=== PATIENT | male | born 1945 | race Caucasian/White ===

== ENCOUNTER 2016-06-22 09:34 | Emergency (ER) | payer MEDICARE, OTHER ==
--- NOTE | 2016-06-22 10:07 | ED ---
Chest Pain HPI - General Chief Complaint: Recheck/Abnormal Lab/Rx Stated Complaint: Diff breathing Time Seen by Provider: 06/22/16 09:38 Source: RN notes reviewed - History of Present Illness Initial Comments: This patient is a 71-year-old man who complains of pain to his anterior chest just the left of his sternum that started after he had a fall. He states that yesterday and id had moved him and not locked his wheelchair, which rolled and he ended up falling forward onto his chest. This was around 1:00. He denies any other injury, including no headache, neck or back pain, abdominal pain or extremity pain. The patient states that he had an appointment at Dr. Chacko's office this morning, and he was sent over here because he was having chest pain and his pulse oximetry readings were low, though he does admit to not being on his usual oxygen settings while he was coming over to the clinic. The patient is denying shortness of breath at the moment. He states he has not had any fever or change in his cough. MD Complaint: chest pain Onset/Timin -: days(s) Onset: other (After a fall) Pain Location: substernal (Left sternal border) Pain Radiation: none Severity: moderate Quality: aching Consistency: constant Improves With: nothing Worsens With: palpation Treatments Prior to Arrival: none - Related Data Home Medications Medication Instructions Recorded Confirmed Acetaminophen Tab [Tylenol] 650 mg PO Q6H PRN 05/16/16 06/23/16 Ascorbic Acid [Vitamin C] 500 mg PO Q48H 05/16/16 06/23/16 Aspirin EC [Ecotrin Low Dose] 81 mg PO DAILY 05/16/16 06/23/16 Atorvastatin Calcium [Lipitor] 40 mg PO HS 05/16/16 06/23/16 Calcium Carbonate [Tums] 500 mg PO DAILY PRN 05/16/16 06/23/16 Cholecalciferol [Vitamin D3] 1,000 unit PO Q48H 05/16/16 06/23/16 Cyanocobalamin [Vitamin B-12] 1,000 mcg PO Q48H 05/16/16 06/23/16 Metoprolol Succinate (ER) [Toprol 25 mg PO DAILY 05/16/16 06/23/16 XL] Sertraline [Zoloft] 50 mg PO DAILY 05/16/16 06/23/16 Benzocaine/Menthol Lozeng [Cepacol 1 lozenge MUCOUS MEM Q1H PRN 06/23/16 lozenge] L. Rhamnosus GG/Inulin [Culturelle 1 tab PO Q48H 06/23/16 06/23/16 Chewable Tablet] Levothyroxine Sodium [Synthroid] 25 mcg PO DAILY 06/23/16 06/23/16 Lisinopril [Zestril] 2.5 mg PO DAILY 06/23/16 06/23/16 Megestrol [Megace] 400 mg PO DAILY 06/23/16 06/23/16 Melatonin 6 mg PO HS PRN 06/23/16 06/23/16 Nystatin 100,000 Unit/ml Susp 500,000 units PO TID 06/23/16 06/23/16 [Mycostatin Oral Susp] Ondansetron [Zofran] 4 mg PO Q8HR PRN 06/23/16 06/23/16 guaiFENesin [Diabetic Tussin Ex] 200 mg PO Q4H PRN 06/23/16 06/23/16 Previous Rx's Medication Instructions Recorded ALPRAZolam [Xanax] 0.25 mg PO TID PRN #30 tablet 06/29/16 Furosemide [Lasix] 40 mg PO Q24HR tab 06/29/16 HYDROcodone/APAP 7.5-325MG [[place] 1 each PO Q6H PRN #60 tab 06/29/16 7.5-325] Levofloxacin [Levaquin] 250 mg PO HS #4 tab 06/29/16 Allergies Allergy/AdvReac Type Severity Reaction Status Date / Time gluten AdvReac HEADACHE Verified 06/23/16 12:29 Review of Systems ROS Statement: Those systems with pertinent positive or pertinent negative responses have been documented in the HPI. ROS Other: All systems not noted in ROS Statement are negative. Constitutional: Denies: fever, chills Respiratory: Denies: cough, dyspnea Cardiovascular: Reports: as per HPI, chest pain. Denies: palpitations, edema, syncope Gastrointestinal: Denies: abdominal pain, nausea, vomiting Musculoskeletal: Denies: back pain Skin: Denies: rash Neurological: Denies: headache, weakness, numbness EKG Findings - EKG Results: EKG: interpreted by GERARDO, sinus rhythm (Rate 71 bpm), normal axis, normal QRS - Blocks, Dunne[place], Hypertrophy, ST Abn: Repolarization changes or abnormalities: nonspecific abnormality, ST segment, and/or T wave Past Medical History Past Medical History: Coronary Artery Disease (CAD), Cancer, CVA/TIA, GERD/ Reflux Additional Past Medical History / Comment(s): uses oxygen at home PRN, "fluid in lung recent admit to [facility]", chronic indwelling catheter, chronic lymphocytic leukemia, CHF for physician discharge summary 01/02/16 History of Any Multi-Drug Resistant Organisms: None Reported Past Surgical History: Heart Catheterization With Stent Additional Past Surgical History / Comment(s): Total of 2 cardiac stents, colonoscopies left shoulder jul 2015, apr 2016 polps removed throat Past Anesthesia/Blood Transfusion Reactions: No Reported Reaction Date of Last Stent Placement:: 2013 Past Psychological History: Anxiety, Depression Additional Psychological History / Comment(s): Pt states he takes xanax for anxiety and that it works well for him. He states he smoked socially for about 3 yrs back in [id number]. He states he has abused alcohol and went into a rehab facility 5 yrs ago and quit drinking. He states lately he has been drinking beer with last time being yesterday after a disagreement with family member. He has attended AA in the past. He is retired [employer]. Smoking Status: Never smoker Past Alcohol Use History: Occasional Additional Past Alcohol Use History / Comment(s): please see psychological history section. Past Drug Use History: None Reported - Past Family History Father Family Medical History: CVA/TIA Additional Family Medical History / Comment(s): Father had several CVA's and eventually from one at the age of 84 yrs. Mother Family Medical History: Cancer Additional Family Medical History / Comment(s): Mother of colon cancer at the age of 78 yrs. General Exam Limitations: no limitations General appearance: alert, in distress Head exam: Present: atraumatic, normocephalic, normal inspection Eye exam: Present: normal appearance. Absent: scleral icterus, conjunctival injection ENT exam: Present: normal exam Neck exam: Present: normal inspection, full ROM. Absent: tenderness Respiratory exam: Present: normal lung sounds bilaterally, chest wall tenderness , other (Reproducible tenderness to chest wall). Absent: respiratory distress, wheezes, rales, rhonchi Cardiovascular Exam: Present: regular rate, normal rhythm. Absent: normal heart sounds GI/Abdominal exam: Present: soft. Absent: distended, tenderness, guarding, rebound Extremities exam: Present: normal inspection, normal capillary refill. Absent: pedal edema, calf tenderness Back exam: Present: normal inspection. Absent: CVA tenderness (R), CVA tenderness (L) Neurological exam: Present: alert Skin exam: Present: warm, dry, intact, normal color. Absent: rash Course Vital Signs 06/22/16 06/22/16 06/22/16 09:57 10:11 11:27 Temperature 99.3 F Pulse Rate 76 71 67 Respiratory 16 16 Rate Blood Pressure 131/63 O2 Sat by Pulse 93 L Oximetry 06/22/16 06/22/16 06/22/16 11:34 11:35 13:08 Temperature 98.9 F Pulse Rate 63 68 74 Respiratory 14 14 Rate Blood Pressure 100/61 105/64 O2 Sat by Pulse 94 L 94 L Oximetry 06/22/16 06/22/16 14:02 14:41 Temperature Pulse Rate 87 77 Respiratory 14 14 Rate Blood Pressure 100/56 106/65 O2 Sat by Pulse 94 L 94 L Oximetry Disposition Clinical Impression: Rib fracture, Weakness, Renal failure (ARF), acute on chronic Disposition: HOME SELF-CARE Condition: Poor Instructions: Rib Fracture (ED), COPD (Chronic Obstructive Pulmonary Disease) ( ED) Referrals: Paulina Biggs DO [Primary Care Provider] - 1-2 days
[2016-06-22 10:15] LABS: Anisocytosis Slight; Aty Lym Flag Marked; CHCM 30.8; HGB 11.4 gm/dL (13.0-17.5); Hypochromasia Moderate; MCHC 30.6 g/dL (31.0-37.0); MCV 84.9 fL (80.0-100.0)
--- NOTE | 2016-06-22 10:24 | XR ---
EXAMINATION TYPE: XR chest 1V portable DATE OF EXAM: 06/22/2016 10:14 AM Comparison: 05/28/2016 Clinical History: 71-year-old male with chest pain Findings: Heart is mildly enlarged. Similar prior. Rightward patient rotation alters the normal cardiac and med iastinal contours. Right lung and pleural space appear clear. Continued retrocardiac and left basilar opacity. Partially visualized fixation hardware proximal left humerus. There are punched-out lytic l esion seen within the proximal right humerus, similar previous. Possible additional subtle lytic lesi ons in the medial right clavicular shaft. Left lateral lower rib fracture deformities probably subacu te. Impression: 1. Probable subacute lower left lateral rib fracture deformities. 2. Continued small left pleural effusion with adjacent atelectasis and/or consolidation. 3. Redemonstrated punched-out lytic lesions proximal right humerus and probably in the medial right c lavicle as well. Correlate for metastatic disease or multiple myeloma.
[2016-06-22 10:26] LABS: HCT 37.3 % (39.0-53.0); HDW 3.06; Mean Platelet Volume 7.8; RDW 18.5 % (11.5-15.5); WBC (Perox) 187.8
[2016-06-22 10:30] LABS: Calcium 8.9 mg/dL (8.4-10.2); Magnesium 2.1 mg/dL (1.6-2.3); Potassium 5.4 mmol/L (3.5-5.1); Total Bilirubin 0.7 mg/dL (0.2-1.3); WBC 189.6 k/uL (3.8-10.6)
[2016-06-22 10:36] LABS: INR 1.1 (<1.1); Partial Thromboplastin Time 24.9 sec (22.0-30.0)
[2016-06-22 10:46] LABS: Creatine Kinase 110 U/L (55-170)
[2016-06-22 10:55] LABS: Add Differential Manual Differential
[2016-06-22 10:56] LABS: Nucleated Red Blood Cells 0 /100 WBC (0-0); Total Cells Counted 200
[2016-06-22 10:58] LABS: Creatine Kinase MB 1.7 ng/mL (0.0-2.4); Troponin I <0.012 ng/mL (0.000-0.034)
[2016-06-22] MEDS ORDERED: ALBUTEROL NEBULIZED 2.5 MG/3 ML INHALATION STA (11:03)
[2016-06-22 11:37] VITALS: RESP 14
[2016-06-22] MEDS ORDERED: SODIUM CHLORIDE 0.9% 500 ML IV STA (11:48)
[2016-06-22] MEDS ORDERED: MORPHINE SULFATE 4 MG/ML SYRINGE IV STA (11:48)
[2016-06-22 13:10] VITALS: TEMP 98.9
[2016-06-22 14:47] VITALS: BP 106/65; PULSE 77
[2016-06-22] MEDS ORDERED: MORPHINE SULFATE 2 MG/ML SYRINGE IVP ONE (14:47)
== END 2016-06-22 15:16 | disposition home or self-care (01) ==
LOC: EC 09:34
DX: S22.32XA Fracture of one rib, left side, initial encounter for closed fracture (principal); V00.811A Fall from moving wheelchair (powered), initial encounter; R53.1 Weakness; N17.9 Acute kidney failure, unspecified; N18.9 Chronic kidney disease, unspecified; F41.9 Anxiety disorder, unspecified; F32.9 Major depressive disorder, single episode, unspecified; I50.9 Heart failure, unspecified; I25.10 Atherosclerotic heart disease of native coronary artery without angina pectoris; K21.9 Gastro-esophageal reflux disease without esophagitis; Z95.5 Presence of coronary angioplasty implant and graft; Z85.6 Personal history of leukemia; Z79.82 Long term (current) use of aspirin; Z79.899 Other long term (current) drug therapy; Z86.73 Personal history of transient ischemic attack (TIA), and cerebral infarction without residual deficits; Z87.891 Personal history of nicotine dependence; Z99.81 Dependence on supplemental oxygen
CPT/HCPCS: 36415; 94640; 93005; 80053; 82550; 82553; 83735; 84484; 85025; 85610; 85730; 71010; 99285; 96374; 96361; J2270

== ENCOUNTER 2016-06-23 10:23 | Inpatient (IN) | payer MEDICARE, OTHER ==
[2016-06-23] MEDS ORDERED: methylPREDNISolone SOD SUCCI 125 MG/2 ML VIAL IV STA (10:44)
[2016-06-23] MEDS ORDERED: IPRATROPIUM 0.5 MG/2.5 ML NEBU INHALATION STA (10:44)
[2016-06-23] MEDS ORDERED: ALBUTEROL NEBULIZED 2.5 MG/3 ML INHALATION STA (10:44)
[2016-06-23] MEDS ORDERED: SODIUM CHLORIDE 0.9% 500 ML IV STA (10:44)
--- NOTE | 2016-06-23 10:55 | ED ---
Pediatric SOB HPI - General Chief Complaint: Shortness of Breath Stated Complaint: ector Time Seen by Provider: 06/23/16 10:36 Source: EMS Mode of arrival: EMS Limitations: no limitations - History of Present Illness Initial Comments: Presented with shortness of breath, he was seen earlier in the ER, today he had a chest pain at his nursing facility and they noticed that he was bit confused according to the EMS he answered yes to everything they felt that he was disoriented which is not like him is mostly quite sharp. He had a chest pain bit short winded and blood pressure was quite low according to the EMS his blood pressure was 74/50 and we noticed a blood pressure when he came to the ER. Review of system is not available clearly when I seen him the ER his blood pressure was low he would answer but it wasn't clear he would send the yes to everything I asked him - Related Data Home Medications Medication Instructions Recorded Confirmed Acetaminophen Tab [Tylenol Tab] 650 mg PO Q6H PRN 05/16/16 06/23/16 Ascorbic Acid [Vitamin C] 500 mg PO Q48H 05/16/16 06/23/16 Aspirin EC [Ecotrin Low Dose] 81 mg PO DAILY 05/16/16 06/23/16 Atorvastatin Calcium [Lipitor] 40 mg PO HS 05/16/16 06/23/16 Calcium Carbonate [Tums] 500 mg PO DAILY PRN 05/16/16 06/23/16 Cholecalciferol [Vitamin D3] 1,000 unit PO Q48H 05/16/16 06/23/16 Cyanocobalamin [Vitamin B-12] 1,000 mcg PO Q48H 05/16/16 06/23/16 HYDROcodone/APAP 7.5-325MG [[place] 1 tab PO Q6H PRN 05/16/16 06/23/16 7.5-325] Metoprolol Succinate (ER) [Toprol 25 mg PO DAILY 05/16/16 06/23/16 Xl] Sertraline [Zoloft] 50 mg PO DAILY 05/16/16 06/23/16 ALPRAZolam [Xanax] 0.25 mg PO TID PRN 06/23/16 06/23/16 Baclofen 10 mg PO BID 06/23/16 06/23/16 Benzocaine/Menthol Lozeng [Cepacol 1 lozenge MUCOUS MEM Q1H PRN 06/23/16 Lozenge] L. Rhamnosus GG/Inulin [Culturelle 1 tab PO Q48H 06/23/16 06/23/16 Chewable Tablet] Levothyroxine Sodium [Synthroid] 25 mcg PO DAILY 06/23/16 06/23/16 Lisinopril [Zestril] 2.5 mg PO DAILY 06/23/16 06/23/16 Megestrol [Megace] 400 mg PO DAILY 06/23/16 06/23/16 Melatonin 6 mg PO HS PRN 06/23/16 06/23/16 Nystatin 100,000 Unit/ml Susp 500,000 units PO TID 06/23/16 06/23/16 [Mycostatin Oral Susp] Ondansetron [Zofran] 4 mg PO Q8HR PRN 06/23/16 06/23/16 Spironolactone [Aldactone] 25 mg PO DAILY 06/23/16 06/23/16 guaiFENesin [Diabetic Tussin Ex] 200 mg PO Q4H PRN 06/23/16 06/23/16 Allergies Allergy/AdvReac Type Severity Reaction Status Date / Time gluten AdvReac HEADACHE Verified 06/23/16 12:29 Review of Systems ROS Statement: Those systems with pertinent positive or pertinent negative responses have been documented in the HPI. ROS Other: All systems not noted in ROS Statement are negative. Past Medical History Past Medical History: Coronary Artery Disease (CAD), Cancer, CVA/TIA, GERD/ Reflux Additional Past Medical History / Comment(s): uses oxygen at home PRN, "fluid in lung recent admit to [facility]", chronic indwelling catheter, chronic lymphocytic leukemia, CHF for physician discharge summary 01/02/16 History of Any Multi-Drug Resistant Organisms: None Reported Past Surgical History: Heart Catheterization With Stent Additional Past Surgical History / Comment(s): Total of 2 cardiac stents, colonoscopies left shoulder jul 2015, apr 2016 polps removed throat Past Anesthesia/Blood Transfusion Reactions: No Reported Reaction Date of Last Stent Placement:: 2013 Past Psychological History: Anxiety, Depression Additional Psychological History / Comment(s): Pt states he takes xanax for anxiety and that it works well for him. He states he smoked socially for about 3 yrs back in [id number]. He states he has abused alcohol and went into a rehab facility 5 yrs ago and quit drinking. He states lately he has been drinking beer with last time being yesterday after a disagreement with family member. He has attended AA in the past. He is retired [employer]. Smoking Status: Never smoker Past Alcohol Use History: Occasional Additional Past Alcohol Use History / Comment(s): please see psychological history section. Past Drug Use History: None Reported - Past Family History Father Family Medical History: CVA/TIA Additional Family Medical History / Comment(s): Father had several CVA's and eventually from one at the age of 84 yrs. Mother Family Medical History: Cancer Additional Family Medical History / Comment(s): Mother of colon cancer at the age of 78 yrs. General Exam - General Exam Comments Initial Comments: General: The patient is barely awake, lethargic Skin: Skin is warm and dry and no rashes or lesions are noted. Eye: External ocular muscles are intact. Ears, nose, mouth and throat: There are moist mucous membranes and no oral lesions. Neck: The neck is supple, there is no tenderness or JVD. Cardiovascular: There is a regular rate and rhythm. No murmur, rub or gallop is appreciated. Respiratory: To auscultation bilateral, noticed crackles at the bases Gastrointestinal: Soft, non-distended, non-tender abdomen without masses or organomegaly noted. There is no rebound or guarding present. Bowel sounds are unremarkable. Back: There is no tenderness to palpation in the midline. There is no obvious deformity. Musculoskeletal: Normal ROM, no tenderness, There is no pedal edema. There is no calf tenderness or swelling. No cords were appreciated. Neurological: CN II-XII intact, Cranial nerves III through XII are intact. There are no obvious motor or sensory deficits. Coordination appears grossly intact. Speech is normal. Psychiatric: Cooperative, appropriate mood & affect, normal judgment. Limitations: no limitations Course Vital Signs 06/23/16 06/23/16 06/23/16 10:26 10:31 10:46 Temperature 98.4 F Pulse Rate 70 70 70 Respiratory 20 20 20 Rate Blood Pressure 74/55 85/53 104/57 O2 Sat by Pulse 97 95 95 Oximetry 06/23/16 06/23/16 06/23/16 11:14 11:17 12:22 Temperature Pulse Rate 68 60 Respiratory 20 20 16 Rate Blood Pressure 95/62 100/56 O2 Sat by Pulse 96 95 Oximetry 06/23/16 13:25 Temperature Pulse Rate 79 Respiratory Rate Blood Pressure O2 Sat by Pulse Oximetry EKG is a sinus rhythm with a premature atrial complexes and a ventricular rate is 78 CA interval is 160 QRS duration is 84 QT/QTc is 364/414, degree of this EKG showed flattening of the T-wave in aVL, no ST elevation or ST depression noticed, seems like there is some artifact this EKG Considering VQ scan may not be able to get done right away will start him on now Lovenox 0.75 mg/kg every 12 DL VQ scan is done and report is available then he could go on heparin high-dose protocol if needed for this was discussed with the Dr. Brock he is aware of the and he agrees with the Medical Decision Making - Lab Data Result diagrams: 06/23/16 10:52 06/23/16 10:52 Lab Results 06/23/16 06/23/16 06/23/16 Range/Units 10:13 10:52 10:52 WBC 140.9 H* (3.8-10.6) k/uL RBC 3.73 L (4.30-5.90) m/uL Hgb 9.8 L D (13.0-17.5) gm/dL Hct 31.9 L (39.0-53.0) % MCV 85.4 (80.0-100.0) fL MCH 26.3 (25.0-35.0) pg MCHC 30.8 L (31.0-37.0) g/dL RDW 18.2 H (11.5-15.5) % Plt Count 183 (150-450) k/uL Neutrophils % (Manual) 2.0 % Lymphocytes % (Manual) 96.0 % Monocytes % (Manual) 1.0 % Eosinophils % (Manual) 1.0 % Neutrophils # (Manual) 2.8 (1.3-7.7) k/uL Lymphocytes # (Manual) 135.3 H (1.0-4.8) k/uL Monocytes # (Manual) 1.4 H (0-1.0) k/uL Eosinophils # (Manual) 1.4 H (0-0.7) k/uL Nucleated RBCs 0 (0-0) /100 WBC Hypochromasia Marked Anisocytosis Slight PT (9.0-12.0) sec INR (<1.1) APTT (22.0-30.0) sec D-Dimer (<0.60) mg/L FEU Sodium (137-145) mmol/L Potassium (3.5-5.1) mmol/L Chloride (98-107) mmol/L Carbon Dioxide (22-30) mmol/L Anion Gap mmol/L BUN (9-20) mg/dL Creatinine (0.66-1.25) mg/dL Est GFR (MDRD) Af Amer (>60 ml/min/1.73 sqM) Est GFR (MDRD) Non-Af (>60 ml/min/1.73 sqM) Glucose (74-99) mg/dL POC Glucose (mg/dL) (75-99) mg/dL POC Glu Lead Portfolio Manager ID Plasma Lactic Acid Fernando 0.5 L (0.7-2.0) mmol/L Calcium (8.4-10.2) mg/dL Total Bilirubin (0.2-1.3) mg/dL AST (17-59) U/L ALT (21-72) U/L Alkaline Phosphatase (38-126) U/L Total Creatine Kinase 112 (55-170) U/L CK-MB (CK-2) 1.6 (0.0-2.4) ng/mL CK-MB (CK-2) Rel Index 1.4 Troponin I 0.016 (0.000-0.034) ng/mL Total Protein (6.3-8.2) g/dL Albumin (3.5-5.0) g/dL 06/23/16 06/23/16 06/23/16 Range/Units 10:52 10:52 12:34 WBC (3.8-10.6) k/uL RBC (4.30-5.90) m/uL Hgb (13.0-17.5) gm/dL Hct (39.0-53.0) % MCV (80.0-100.0) fL MCH (25.0-35.0) pg MCHC (31.0-37.0) g/dL RDW (11.5-15.5) % Plt Count (150-450) k/uL Neutrophils % (Manual) % Lymphocytes % (Manual) % Monocytes % (Manual) % Eosinophils % (Manual) % Neutrophils # (Manual) (1.3-7.7) k/uL Lymphocytes # (Manual) (1.0-4.8) k/uL Monocytes # (Manual) (0-1.0) k/uL Eosinophils # (Manual) (0-0.7) k/uL Nucleated RBCs (0-0) /100 WBC Hypochromasia Anisocytosis PT 11.3 (9.0-12.0) sec INR 1.1 (<1.1) APTT 26.7 (22.0-30.0) sec D-Dimer 1.20 H (<0.60) mg/L FEU Sodium 149 H (137-145) mmol/L Potassium 5.3 H (3.5-5.1) mmol/L Chloride 118 H (98-107) mmol/L Carbon Dioxide 20 L (22-30) mmol/L Anion Gap 11 mmol/L BUN 38 H (9-20) mg/dL Creatinine 1.74 H (0.66-1.25) mg/dL Est GFR (MDRD) Af Amer 47 (>60 ml/min/1.73 sqM) Est GFR (MDRD) Non-Af 39 (>60 ml/min/1.73 sqM) Glucose 126 H (74-99) mg/dL POC Glucose (mg/dL) 108 H (75-99) mg/dL POC Glu Lead Portfolio Manager ID Teri Wally Plasma Lactic Acid Fernando (0.7-2.0) mmol/L Calcium 8.4 (8.4-10.2) mg/dL Total Bilirubin 0.7 (0.2-1.3) mg/dL AST 41 (17-59) U/L ALT 44 (21-72) U/L Alkaline Phosphatase 90 (38-126) U/L Total Creatine Kinase (55-170) U/L CK-MB (CK-2) (0.0-2.4) ng/mL CK-MB (CK-2) Rel Index Troponin I (0.000-0.034) ng/mL Total Protein 5.3 L (6.3-8.2) g/dL Albumin 3.2 L (3.5-5.0) g/dL Critical Care Time Total Critical Care Time: 45 Critical Care Time: The patient came in with a blood pressure of 574/55, ABGs were done right away and a fluid resuscitation was started along within nor appendectomy tract pH is 7.31 and bicarb is on the lower side 7.4 fluid bolus was given and 9 that improved his blood pressure right now blood pressure is 105 systolic he is a lot more awake and a he is feeling better he does have a history of chronic myocytic leukemia white blood cell is 140 today was 19 he lost time we checked it is deep, is elevated he definitely needs eval for his blood clot on his lungs but unfortunately can't do the CT angiogram it has to be a 2) to be done in house since his creatinine is 1.[address] is normal rule out any subdural Disposition Clinical Impression: Hypotension, Pneumonia, Fracture of rib, CHF (congestive heart failure), Lytic bone lesions on xray, Elevated d-dimer Disposition: ADMITTED IP TO THIS [facility] Condition: Fair Referrals: Paulina Biggs DO [Primary Care Provider] - 1-2 days
[2016-06-23] MEDS ORDERED: NOREPINEPHRINE 4 MG in SODIUM CHLORIDE 0.9% 250 ML IV SCH ×2 (11:00→16:45)
[2016-06-23 11:16] LABS: Anisocytosis Slight; Aty Lym Flag Marked; CH 25.7; CHCM 30.2; HCT 31.9 % (39.0-53.0); HDW 3.01; Hypochromasia Marked; MCH 26.3 pg (25.0-35.0); MCHC 30.8 g/dL (31.0-37.0); MCV 85.4 fL (80.0-100.0); Mean Platelet Volume 6.5; RBC 3.73 m/uL (4.30-5.90); RDW 18.2 % (11.5-15.5); WBC (Perox) 143.2
[2016-06-23 11:22] LABS: HGB 9.8 gm/dL (13.0-17.5)
[2016-06-23 11:24] LABS: WBC 140.9 k/uL (3.8-10.6)
[2016-06-23 11:28] LABS: INR 1.1 (<1.1); Partial Thromboplastin Time 26.7 sec (22.0-30.0); Prothrombin Time 11.3 sec (9.0-12.0)
[2016-06-23 11:30] LABS: Calcium 8.4 mg/dL (8.4-10.2); Potassium 5.3 mmol/L (3.5-5.1); Total Bilirubin 0.7 mg/dL (0.2-1.3); Total Protein 5.3 g/dL (6.3-8.2)
[2016-06-23 11:40] LABS: Add Differential Manual Differential
[2016-06-23 11:41] LABS: Nucleated Red Blood Cells 0 /100 WBC (0-0); Total Cells Counted 100
[2016-06-23 11:59] LABS: Creatine Kinase MB 1.6 ng/mL (0.0-2.4); Troponin I 0.016 ng/mL (0.000-0.034)
--- NOTE | 2016-06-23 11:59 | CT ---
EXAMINATION TYPE: CT brain wo con DATE OF EXAM: 06/23/2016 11:51 AM COMPARISON: 05/16/2016 HISTORY: 71-year-old male with confusion TECHNIQUE: Examination was done in axial plane without intravenous contrast. Coronal and sagittal reconstructio ns performed. CT DLP: 1162.5 mGycm Automated exposure control for dose reduction was used. FINDINGS: There is no evidence of acute intracranial hemorrhage, acute ischemic changes, mass, mass-effect, or extra-axial fluid collection. There is no effacement of cerebral sulci or basal subarachnoid cister ns. There is no midline shift. Brown-white matter distinction is preserved. Stable moderate diffuse ventriculomegaly and mild to moderate patchy white matter hypodensities. Stable hypodensity in the lateral left cerebellar hemisphere could reflect prior vascular insult. Paranasal sinuses and mastoid air cells well pneumatized. Prominent artifact over the globes. IMPRESSION: 1. No acute intracranial abnormality seen. 2. Stable panventriculomegaly. Correlate for any symptoms of NPH. 3. Mild changes of chronic small vessel ischemic disease and stable encephalomalacia lateral left cer ebellar hemisphere suggesting prior infarct.
[2016-06-23] MEDS ORDERED: VITAMIN A 10,000 UNIT CAPSULE PO SCH (12:15)
[2016-06-23] MEDS ORDERED: NON-FORMULARY DRUG (Calcium/Magnesium/Zinc [Calcium-Magnesium-Zinc Tablet] 1 TAB) PO SCH (12:15)
[2016-06-23] MEDS ORDERED: cefTRIAXone 2,000 MG in SODIUM CHLORIDE 0.9% 100 ML IVPB STA ×2 (12:15→13:09)
--- NOTE | 2016-06-23 12:30 | XR ---
EXAMINATION TYPE: XR chest 2V DATE OF EXAM: 06/23/2016 12:04 PM COMPARISON: 06/22/[address] 04/23/2016. HISTORY: 71-year-old male with difficulty breathing TECHNIQUE: Frontal and lateral views FINDINGS: Limited portable exam due to combination of excessive kyphotic positioning and chin over the upper th orax. Heart appears upper limits of normal in size. There is patchy posterior basilar opacity seen on the lateral view. Diffuse interstitial prominence otherwise appears unchanged from prior. Punched-ou t lytic lucencies proximal right humerus are again noted with probable subacute to chronic fracture d eformities lower left lateral ribs. Vertebral compression collapse of a couple mid thoracic vertebr al bodies unchanged from CT of 04/23/2016. IMPRESSION: 1. Limited exam due to patient positioning. There is interstitial prominence. Correlate to exclude pu lmonary vascular congestion. 2. Patchy posterior basilar opacity on the lateral view could represent atelectasis or infiltrate. 3. A couple vertebral compression collapses mid thoracic spine appear to have been present on 016. Lateral lower left rib fractures are likely subacute to chronic. 4. Redemonstrated punched-out lytic lucencies proximal right humerus.
[2016-06-23 12:39] LABS: Glucose,Whole Blood 108 mg/dL (75-99)
[2016-06-23] MEDS ORDERED: AZITHROMYCIN 500 MG in SODIUM CHLORIDE 0.9% 250 ML IVPB STA (13:10)
[2016-06-23] MEDS ORDERED: MORPHINE SULFATE 4 MG/ML SYRINGE IV PRN (13:38)
[2016-06-23] MEDS ORDERED: NALOXONE 0.4 MG/ML 1 ML VIAL IV PRN (13:38)
[2016-06-23 13:50] LABS: ABG Base Excess -7.7 mmol/L; ABG HCO3 17 mmol/L (21-25); ABG PCO2 36 mmHg (35-45); ABG PH 7.31 (7.35-7.45); ABG PO2 139 mmHg (83-108); ABG TCO2 19 mmol/L (19-24)
[2016-06-23] MEDS ORDERED: FUROSEMIDE 10 MG/ML 2 ML VIAL IV STA (15:13)
--- NOTE | 2016-06-23 15:13 | NM ---
EXAMINATION TYPE: NM pul vent and perfuse DATE OF EXAM: 06/23/2016 2:55 PM COMPARISON: Correlation radiograph same date HISTORY: 71 year-old male shortness of breath, rule out PE TECHNIQUE: Utilizing inhalation of 71.2 mCi Tc 99m DTPA aerosol and intravenous injection of 5.4 mCi of Tc 99m MAA, ventilation and perfusion images are acquired post injection in multiple projections. FINDINGS: There is a moderate-sized matched defect along the posterior left lung probably with corresponding op acity on chest x-ray making for a triple matched defect. Otherwise, there is mild heterogeneity of pe rfusion throughout the lungs. IMPRESSION: Intermediate probability for pulmonary embolism based on modified PIOPED 2 criteria.
--- NOTE | 2016-06-23 15:23 | XR ---
EXAMINATION TYPE: XR chest 1V portable DATE OF EXAM: 06/23/2016 3:16 PM Comparison: Earlier today Clinical History: 71 year-old male shortness of breath Findings: Again, limited exam due to kyphotic positioning and chin over the upper thorax. Heart remains upper l imits of normal in size. Some patchy retrocardiac opacity is seen. Diffuse interstitial prominence. P unched-out lytic lucencies proximal right humerus and probable subacute to chronic left lower lateral rib fracture deformities. Impression: Similar patchy retrocardiac atelectasis or infiltrate. Interstitial prominence likely chronic. Correl ate to exclude mild pulmonary vascular congestion.
[2016-06-23] MEDS ORDERED: FUROSEMIDE 40 MG TAB PO SCH (16:00)
[2016-06-23 16:07] LABS: VBG PH 7.26 (7.31-7.41)
[2016-06-23] MEDS ORDERED: NOREPINEPHRINE 16 MG in SODIUM CHLORIDE 0.9% 250 ML IV SCH (16:45)
[2016-06-23] MEDS: LEVOFLOXACIN 500MG-D5W PMX 500 MG in DEXTROSE/WATER 1 100ML.BAG IVPB SCH (18:08)
[2016-06-23 18:31] LABS: Glucose,Whole Blood 268 mg/dL (75-99)
[2016-06-23] MEDS ORDERED: ENOXAPARIN 60 MG/0.6 ML SYRINGE SQ SCH (21:00)
[2016-06-23 21:06] LABS: Appearance,Urine Clear (Clear); Bilirubin,Urine Negative (Negative); Glucose,Urine (UA) Negative (Negative); Ketones,Urine Negative (Negative); Leukocyte Esterase,Urine Large (Negative); Mucus,Urine Rare /hpf; Nitrite,Urine Negative (Negative); Particle Count 2072; Protein,Urine Trace (Negative); Specific Gravity,Urine 1.008 (1.001-1.035); Squamous Epithelial Cell,Urine <1 /hpf (0-4); UA Billing (MACRO vs. MICRO) MICRO; Urobilinogen,Urine <2.0 mg/dL (<2.0); WBC,Urine 17 /hpf (0-5)
[2016-06-23] MEDS: ATORVASTATIN 40 MG TAB PO SCH (22:23)
[2016-06-23] MEDS: FUROSEMIDE 40 MG TAB PO SCH (22:23)
[2016-06-23] MEDS: ENOXAPARIN 60 MG/0.6 ML SYRINGE SQ SCH (22:23)
[2016-06-23] MEDS: PIPERACILLIN-TAZOBACTAM 3.375 GM in DEXTROSE/WATER 1 50ML.BAG IVPB SCH (23:41)
[2016-06-24] MEDS: ACETAMINOPHEN TAB 325 MG TAB PO PRN ×2 (03:07→08:16)
[2016-06-24 05:03] LABS: Anisocytosis Slight; Aty Lym Flag Marked; CH 25.7; CHCM 29.3; HCT 32.5 % (39.0-53.0); HDW 2.92; HGB 9.8 gm/dL (13.0-17.5); Hypochromasia Marked; MCH 26.6 pg (25.0-35.0); MCHC 30.1 g/dL (31.0-37.0); MCV 88.2 fL (80.0-100.0); Mean Platelet Volume 7.6; RBC 3.69 m/uL (4.30-5.90); RDW 18.4 % (11.5-15.5); WBC (Perox) 163.1
[2016-06-24 05:17] LABS: Calcium 8.6 mg/dL (8.4-10.2); Magnesium 2.4 mg/dL (1.6-2.3); Phosphorous 5.3 mg/dL (2.5-4.5); Potassium 5.6 mmol/L (3.5-5.1)
[2016-06-24 05:31] LABS: WBC 164.2 k/uL (3.8-10.6)
[2016-06-24 06:45] LABS: Add Differential Manual Differential
[2016-06-24 06:47] LABS: Nucleated Red Blood Cells 0 /100 WBC (0-0); Total Cells Counted 200
[2016-06-24 06:49] LABS: Target Cells Present
[2016-06-24 06:50] LABS: Manual Review Performed
--- NOTE | 2016-06-24 07:34 | XR ---
EXAMINATION TYPE: XR chest 1V portable DATE OF EXAM: 06/24/2016 6:28 AM Comparison: 06/23/2016 Clinical History: 71 year-old male shortness of breath Findings: Heart remains upper limits of normal in size. Aorta and pulmonary vasculature within normal limits. P ersisting patchy left basilar opacity. Lower posterolateral and lateral chronic left rib fracture def ormities are again noted. Intramedullary nailing proximal left humerus. Redemonstrated punched-out ly tic lucencies in the proximal right humerus. Impression: Continued patchy left basilar atelectasis or infiltrate. Possible trace effusion.
[2016-06-24 07:40] LABS: Glucose,Whole Blood 140 mg/dL (75-99)
[2016-06-24] MEDS: ASPIRIN 81 MG CHEW PO SCH (08:16)
[2016-06-24] MEDS: FUROSEMIDE 40 MG TAB PO SCH (08:16)
[2016-06-24] MEDS: ENOXAPARIN 60 MG/0.6 ML SYRINGE SQ SCH (08:16)
[2016-06-24] MEDS: SERTRALINE 50 MG TAB PO SCH (08:16)
[2016-06-24] MEDS: PIPERACILLIN-TAZOBACTAM 3.375 GM in DEXTROSE/WATER 1 50ML.BAG IVPB SCH ×2 (09:16→16:27)
[2016-06-24] MEDS ORDERED: FUROSEMIDE 40 MG TAB PO SCH (11:00)
[2016-06-24] MEDS: LISINOPRIL 5 MG TAB PO SCH (11:11)
[2016-06-24] MEDS: METOPROLOL SUCCINATE (ER) 25 MG TAB.ER.24H PO SCH (11:11)
[2016-06-24] MEDS: CYANOCOBALAMIN 500 MCG TAB PO SCH (13:00)
[2016-06-24] MEDS: CALCIUM CARBONATE 500 MG CHEWABLE PO SCH (13:00)
[2016-06-24] MEDS: CHOLECALCIFEROL 1,000 UNIT TAB PO SCH (13:00)
--- NOTE | 2016-06-24 14:07 | P.CNPUL ---
History of Present Illness Consult date: 06/24/16 Reason for consult: dyspnea History of present illness: This 69-year-old male patient resides at the [facility]. The patient has multiple medical problems and comorbidities. 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 He did experience some difficulties in swallowing and painful swallow due to radiation therapy. He presented yesterday to be worse department because of difficulty in breathing, change in mental status and the patient was found to be disoriented and did not seem to be at his baseline. In the Department the patient was initially found to have a blood pressure 74/50. He was given a bolus of liter of fluid. This made him more short of breath and it was thought that he was going into pulmonary edema. At that point he was started on IV Lasix. Vasopressors were about to be initiated on this patient however this got placed on hold knowing that the patient's blood pressure improved. He was briefly placed on a BiPAP at a pressure of 10 over 5 cm of water 42 shortness of breath. This morning he is off the BiPAP. His chest x-ray shows kyphoscoliosis and some limited left basilar effusion and some microvascular congestion secondary to CHF. He is known to have heart failure along with coronary artery disease. He has multivessel coronary artery disease and he was not amenable for any any revascularization. His ejection fraction is around 25- 30%. He has also previous history of left-sided pleural effusion that was drained and the fluid characteristics was typical of CLL fluid. He is known to have underlying chronic of ascitic leukemia currently not receiving any treatment. Review of Systems Full review of system was done. Mental status is improved considerably. No focal neurological deficits. No fever or chills. No reported aspiration although this is a concern. Some sore throat related to radiation therapy to his vocal cords. Past Medical History Past Medical History: Coronary Artery Disease (CAD), Cancer, CVA/TIA, GERD/ Reflux, Myocardial Infarction ([place]) Additional Past Medical History / Comment(s): CHF and an EF 23-30%, chronic left sided pleural effusion, CLL, chronic hypoxic respiratory failure uses oxygen at home PRN, meningitits 8-10 years ago , CVA , CAD and insertion of previous coronary stent and he has tripple vessel disease that is not emenable for revascularization, anxiety and depression, GERD, larygeal/vocal cord cancer and he is receiving radiation therapy and 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 Last Myocardial Infarction Date:: 2013 History of Any Multi-Drug Resistant Organisms: None Reported Past Surgical History: Heart Catheterization With Stent Additional Past Surgical History / Comment(s): Cardiac catheterization insertion of coronary stents, colonoscopy, left shoulder surgery, thoracentesis of the left lung, laryngoscopy Past Anesthesia/Blood Transfusion Reactions: No Reported Reaction Date of Last Stent Placement:: 2013 Past Psychological History: Anxiety, Depression Additional Psychological History / Comment(s): Pt states he takes xanax for anxiety and that it works well for him. He states he smoked socially for about 3 yrs back in [id number]. He states he has abused alcohol and went into a rehab facility 5 yrs ago and quit drinking. He states lately he has been drinking beer with last time being yesterday after a disagreement with family member. He has attended AA in the past. He is retired [employer]. Smoking Status: Former smoker Past Alcohol Use History: Occasional Additional Past Alcohol Use History / Comment(s): please see psychological history section. Past Drug Use History: None Reported - Past Family History Father Family Medical History: CVA/TIA Additional Family Medical History / Comment(s): Father had several CVA's and eventually from one at the age of 84 yrs. Mother Family Medical History: Cancer, CVA/TIA Additional Family Medical History / Comment(s): Mother of colon cancer at the age of 78 yrs. Medications and Allergies Home Medications Medication Instructions Recorded Confirmed Type Acetaminophen Tab [Tylenol Tab] 650 mg PO Q6H PRN 05/16/16 06/23/16 History Ascorbic Acid [Vitamin C] 500 mg PO Q48H 05/16/16 06/23/16 History Aspirin EC [Ecotrin Low Dose] 81 mg PO DAILY 05/16/16 06/23/16 History Atorvastatin Calcium [Lipitor] 40 mg PO HS 05/16/16 06/23/16 History Calcium Carbonate [Tums] 500 mg PO DAILY PRN 05/16/16 06/23/16 History Cholecalciferol [Vitamin D3] 1,000 unit PO Q48H 12/07/16 01/14/17 History Cyanocobalamin [Vitamin B-12] 1,000 mcg PO Q48H 05/16/16 06/23/16 History HYDROcodone/APAP 7.5-325MG [[place] 1 tab PO Q6H PRN 05/16/16 06/23/16 History 7.5-325] Metoprolol Succinate (ER) [Toprol 25 mg PO DAILY 05/16/16 06/23/16 History Xl] Sertraline [Zoloft] 50 mg PO DAILY 05/16/16 06/23/16 History ALPRAZolam [Xanax] 0.25 mg PO TID PRN 06/23/16 06/23/16 History Baclofen 10 mg PO BID 06/23/16 06/23/16 History Benzocaine/Menthol Lozeng [Cepacol 1 lozenge MUCOUS MEM Q1H PRN 06/23/16 History Lozenge] L. Rhamnosus GG/Inulin [Culturelle 1 tab PO Q48H 06/23/16 06/23/16 History Chewable Tablet] Levothyroxine Sodium [Synthroid] 25 mcg PO DAILY 06/23/16 06/23/16 History Lisinopril [Zestril] 2.5 mg PO DAILY 06/23/16 06/23/16 History Megestrol [Megace] 400 mg PO DAILY 06/23/16 06/23/16 History Melatonin 6 mg PO HS PRN 06/23/16 06/23/16 History Nystatin 100,000 Unit/ml Susp 500,000 units PO TID 06/23/16 06/23/16 History [Mycostatin Oral Susp] Ondansetron [Zofran] 4 mg PO Q8HR PRN 06/23/16 06/23/16 History Spironolactone [Aldactone] 25 mg PO DAILY 06/23/16 06/23/16 History guaiFENesin [Diabetic Tussin Ex] 200 mg PO Q4H PRN 06/23/16 06/23/16 History Allergies Allergy/AdvReac Type Severity Reaction Status Date / Time gluten AdvReac HEADACHE Verified 06/23/16 12:29 Physical Exam Vitals: Vital Signs Temp Pulse Resp BP Pulse Ox 06/24/16 10:00 88 27 H 108/65 98 06/24/16 09:00 95 23 94/54 96 06/24/16 08:00 98.3 F 87 17 93/61 97 06/24/16 07:00 87 25 H 88/67 96 06/24/16 06:00 88 25 H 100/65 100 06/24/16 05:00 93 27 H 100/67 96 06/24/16 04:00 98 F 85 25 H 99/66 92 L 06/24/16 03:00 89 21 89/59 97 06/24/16 02:00 94 25 H 88/60 100 06/24/16 01:00 98 20 97/66 99 06/24/16 00:00 98.5 F 84 15 92/56 100 06/23/16 23:18 10 L 06/23/16 23:10 92 10 L 91/56 99 06/23/16 23:00 93 32 H 96/70 99 06/23/16 22:50 83 16 102/66 99 06/23/16 22:40 96 52 H 102/66 98 06/23/16 22:30 97 43 H 82/53 98 06/23/16 22:20 85 11 L 81/55 99 06/23/16 22:10 81 10 L 81/55 99 06/23/16 22:00 84 11 L 95/48 99 06/23/16 21:50 94 11 L 99/63 98 06/23/16 21:40 98 26 H 99/63 97 06/23/16 21:30 88 12 98/65 99 06/23/16 21:20 90 11 L 77/54 99 06/23/16 21:10 87 11 L 77/54 99 06/23/16 21:00 88 11 L 95/49 99 06/23/16 20:50 105 H 35 H 79/51 97 06/23/16 20:40 96 27 H 79/51 95 06/23/16 20:30 128 H 25 H 96/63 97 06/23/16 20:20 114 H 11 L 102/63 98 06/23/16 20:10 92 53 H 102/63 98 06/23/16 20:00 102 H 11 L 84/56 98 06/23/16 19:50 98 13 97/57 98 06/23/16 19:40 122 H 35 H 97/57 97 06/23/16 19:30 100 28 H 78/57 98 06/23/16 19:20 117 H 10 L 87/52 99 06/23/16 19:10 112 H 11 L 87/52 98 06/23/16 19:09 99.3 F 97 06/23/16 19:00 99.3 F 127 H 39 H 101/73 98 06/23/16 18:50 119 H 25 H 94/60 97 06/23/16 16:51 92 20 101/59 100 06/23/16 16:27 100.4 F H 98 20 91/55 97 06/23/16 15:00 100 22 95/58 93 L 06/23/16 13:46 69 Intake and Output 06/23/16 06/24/16 06/24/16 22:59 06:59 14:59 Intake Total 160 450 65.0 Output Total 795 945 410 Balance -635 -495 -345.0 Intake: IV 140 40 0.9% NaCl 140 40 Intake, IV Titration 160 70 25.0 Amount Levofloxacin 500Mg-D5w 100 Pmx 500 mg In Dextrose/ Water 1 100ml.bag @ 100 mls/hr IVPB HS [facility] Rx#: [id number] Piperacillin-Tazobactam 3 50 25.0 .375 gm In Dextrose/Water 1 50ml.bag @ 12.5 mls/hr IVPB Q8HR [facility] Rx#: [id number] Sodium Chloride 0.9% 500 60 20 ml @ 999 mls/hr IV .Q31M STA Rx#:[id number] Oral 240 Output: Urine 795 945 410 Other: Voiding Method Indwelling Catheter Indwelling Catheter Indwelling Catheter Weight 58.96 kg 52.8 kg Head exam was generally normal. There was no scleral icterus or corneal arcus. Mucous membranes were moist.Neck was supple and without jugular venous distension, thyromegaly, or carotid bruits. Carotids were easily palpable bilaterally. There was no adenopathy. Lung examination shows thoraco- kyphoscoliosis. Breath sounds are diminished in left lung base. Few crackles are also appreciated lung bases bilaterally.Cardiac exam revealed the PMI to be normally situated and sized. The rhythm was regular and no extrasystoles were noted during several minutes of auscultation. The first and second heart sounds were normal and physiologic splitting of the second heart sound was noted. There were no murmurs, rubs, clicks, or gallops.Abdominal exam revealed normal bowel sounds. The abdomen was soft, non-tender, and without masses, organomegaly , or appreciable enlargement of the abdominal aorta.Examination of the extremities revealed easily palpable radial, femoral and pedal pulses. There was no cyanosis, clubbing or edema. Results - Laboratory Findings CBC and BMP: 06/24/16 04:40 06/24/16 04:40 ABG ABG pH 7.31 (7.35-7.45) L 06/23/16 10:58 ABG pCO2 36 mmHg (35-45) 06/23/16 10:58 ABG pO2 139 mmHg (83-108) H 06/23/16 10:58 ABG O2 Saturation 99.0 % (94-97) H 06/23/16 10:58 PT/INR, D-dimer PT 11.3 sec (9.0-12.0) 06/23/16 10:52 INR 1.1 (<1.1) 06/23/16 10:52 D-Dimer 1.20 mg/L FEU (<0.60) H 06/23/16 10:52 Abnormal lab findings: Abnormal Labs 06/23/16 06/23/16 06/23/16 15:39 18:29 20:50 WBC RBC Hgb Hct MCHC RDW Neutrophils # (Manual) Lymphocytes # (Manual) Monocytes # (Manual) VBG pH 7.26 L VBG HCO3 16 L Sodium Potassium Chloride Carbon Dioxide BUN Creatinine Glucose POC Glucose (mg/dL) 268 H Phosphorus Magnesium Urine Protein Trace H Ur Leukocyte Esterase Large H Urine WBC 17 H Hyaline Casts 5 H Urine Mucus Rare H Urine Yeast (Budding) Occasional H 06/24/16 06/24/16 06/24/16 04:40 04:40 07:38 WBC 164.2 H* RBC 3.69 L Hgb 9.8 L Hct 32.5 L MCHC 30.1 L RDW 18.4 H Neutrophils # (Manual) 8.2 H Lymphocytes # (Manual) 154.3 H Monocytes # (Manual) 1.6 H VBG pH VBG HCO3 Sodium 149 H Potassium 5.6 H Chloride 117 H Carbon Dioxide 17 L BUN 55 H Creatinine 1.80 H Glucose 163 H POC Glucose (mg/dL) 140 H Phosphorus 5.3 H Magnesium 2.4 H Urine Protein Ur Leukocyte Esterase Urine WBC Hyaline Casts Urine Mucus Urine Yeast (Budding) - Diagnostic Findings Chest x-ray: image reviewed Assessment and Plan Plan: Assessment 1 acute shortness of breath, likely secondary to CHF. There is also small left- sided pleural effusion. Pneumonia felt to be less likely. VQ scan is of a intermediate probability of the patient's critical presentation is most consistent with CHF 2 hypotension, recovered 3 hyperchloremic hypernatremia 4 acute on top of chronic renal injury, rule out secondary to cardiorenal factors. 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 18 thoracic kyphoscoliosis Plan Switch Lasix to 40 mg by mouth daily. Continue Zosyn and Levaquin. Repeat chest x-ray with next 24 hours. Switch Lovenox to 40 mg subcu on a daily basis. We'll continue to follow
--- NOTE | 2016-06-24 15:14 | P.HPIM ---
History of Present Illness H&P Date: 06/24/16 Chief Complaint: Worsening shortness of breath Patient is a 69-year-old male with multiple medical problems who currently resides at the [facility] and is followed by Dr. Peck at [facility] for radiation therapy for laryngeal cancer. Patient developed worsening shortness of breath and cough he was brought into [facility] emergency room he had evidence of hypotension was blood pressure of 74/50 he also had evidence of pulmonary edema he was started on IV Lasix IV pressors and was admitted to intensive care unit he was started on BiPAP pulmonary consultation with Dr. Castillo was initiated. Patient has a known history of leukemia, CLL with severe elevation in white blood count he also has a known history of laryngeal cancer currently receiving radiation therapy he has known history of coronary artery disease, congestive heart failure, previous left sided pleural effusion, hypothyroidism, hyperlipidemia, remote history of alcohol abuse. Currently patient is in ICU he is off pressors and off BiPAP he is tolerating well he has improved significantly since admission. Past Medical History Past Medical History: Coronary Artery Disease (CAD), Cancer, CVA/TIA, GERD/ Reflux, Myocardial Infarction ([place]) Additional Past Medical History / Comment(s): CHF and an EF 23-30%, chronic left sided pleural effusion, CLL, chronic hypoxic respiratory failure uses oxygen at home PRN, meningitits 8-10 years ago , CVA , CAD and insertion of previous coronary stent and he has tripple vessel disease that is not emenable for revascularization, anxiety and depression, GERD, larygeal/vocal cord cancer and he is receiving radiation therapy and 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 Last Myocardial Infarction Date:: 2013 History of Any Multi-Drug Resistant Organisms: None Reported Past Surgical History: Heart Catheterization With Stent Additional Past Surgical History / Comment(s): Cardiac catheterization insertion of coronary stents, colonoscopy, left shoulder surgery, thoracentesis of the left lung, laryngoscopy Past Anesthesia/Blood Transfusion Reactions: No Reported Reaction Date of Last Stent Placement:: 2013 Past Psychological History: Anxiety, Depression Additional Psychological History / Comment(s): Pt states he takes xanax for anxiety and that it works well for him. He states he smoked socially for about 3 yrs back in [id number]. He states he has abused alcohol and went into a rehab facility 5 yrs ago and quit drinking. He states lately he has been drinking beer with last time being yesterday after a disagreement with family member. He has attended AA in the past. He is retired [employer]. Smoking Status: Former smoker Past Alcohol Use History: Occasional Additional Past Alcohol Use History / Comment(s): please see psychological history section. Past Drug Use History: None Reported - Past Family History Father Family Medical History: CVA/TIA Additional Family Medical History / Comment(s): Father had several CVA's and eventually from one at the age of 84 yrs. Mother Family Medical History: Cancer, CVA/TIA Additional Family Medical History / Comment(s): Mother of colon cancer at the age of 78 yrs. Medications and Allergies Home Medications Medication Instructions Recorded Confirmed Type Acetaminophen Tab [Tylenol Tab] 650 mg PO Q6H PRN 05/16/16 06/23/16 History Ascorbic Acid [Vitamin C] 500 mg PO Q48H 05/16/16 06/23/16 History Aspirin EC [Ecotrin Low Dose] 81 mg PO DAILY 05/16/16 06/23/16 History Atorvastatin Calcium [Lipitor] 40 mg PO HS 05/16/16 06/23/16 History Calcium Carbonate [Tums] 500 mg PO DAILY PRN 05/16/16 06/23/16 History Cholecalciferol [Vitamin D3] 1,000 unit PO Q48H 05/16/16 06/23/16 History Cyanocobalamin [Vitamin B-12] 1,000 mcg PO Q48H 05/16/16 06/23/16 History HYDROcodone/APAP 7.5-325MG [[place] 1 tab PO Q6H PRN 05/16/16 06/23/16 History 7.5-325] Metoprolol Succinate (ER) [Toprol 25 mg PO DAILY 05/16/16 06/23/16 History Xl] Sertraline [Zoloft] 50 mg PO DAILY 05/16/16 06/23/16 History ALPRAZolam [Xanax] 0.25 mg PO TID PRN 06/23/16 06/23/16 History Baclofen 10 mg PO BID 06/23/16 06/23/16 History Benzocaine/Menthol Lozeng [Cepacol 1 lozenge MUCOUS MEM Q1H PRN 06/23/16 History Lozenge] L. Rhamnosus GG/Inulin [Culturelle 1 tab PO Q48H 06/23/16 06/23/16 History Chewable Tablet] Levothyroxine Sodium [Synthroid] 25 mcg PO DAILY 06/23/16 06/23/16 History Lisinopril [Zestril] 2.5 mg PO DAILY 06/23/16 06/23/16 History Megestrol [Megace] 400 mg PO DAILY 06/23/16 06/23/16 History Melatonin 6 mg PO HS PRN 06/23/16 06/23/16 History Nystatin 100,000 Unit/ml Susp 500,000 units PO TID 06/23/16 06/23/16 History [Mycostatin Oral Susp] Ondansetron [Zofran] 4 mg PO Q8HR PRN 06/23/16 06/23/16 History Spironolactone [Aldactone] 25 mg PO DAILY 06/23/16 06/23/16 History guaiFENesin [Diabetic Tussin Ex] 200 mg PO Q4H PRN 06/23/16 06/23/16 History Allergies Allergy/AdvReac Type Severity Reaction Status Date / Time gluten AdvReac HEADACHE Verified 06/23/16 12:29 Physical Exam Vitals: Vital Signs Temp Pulse Resp BP Pulse Ox 06/24/16 14:00 87 39 H 88/56 97 06/24/16 13:00 91 23 95/66 96 06/24/16 12:00 97.6 F 84 36 H 107/69 98 06/24/16 11:00 88 24 90/64 96 06/24/16 10:00 88 27 H 108/65 98 06/24/16 09:00 95 23 94/54 96 06/24/16 08:00 98.3 F 87 17 93/61 97 06/24/16 07:00 87 25 H 88/67 96 06/24/16 06:00 88 25 H 100/65 100 06/24/16 05:00 93 27 H 100/67 96 06/24/16 04:00 98 F 85 25 H 99/66 92 L 06/24/16 03:00 89 21 89/59 97 06/24/16 02:00 94 25 H 88/60 100 06/24/16 01:00 98 20 97/66 99 06/24/16 00:00 98.5 F 84 15 92/56 100 06/23/16 23:18 10 L 06/23/16 23:10 92 10 L 91/56 99 06/23/16 23:00 93 32 H 96/70 99 06/23/16 22:50 83 16 102/66 99 06/23/16 22:40 96 52 H 102/66 98 06/23/16 22:30 97 43 H 82/53 98 06/23/16 22:20 85 11 L 81/55 99 06/23/16 22:10 81 10 L 81/55 99 06/23/16 22:00 84 11 L 95/48 99 06/23/16 21:50 94 11 L 99/63 98 06/23/16 21:40 98 26 H 99/63 97 06/23/16 21:30 88 12 98/65 99 06/23/16 21:20 90 11 L 77/54 99 06/23/16 21:10 87 11 L 77/54 99 06/23/16 21:00 88 11 L 95/49 99 06/23/16 20:50 105 H 35 H 79/51 97 06/23/16 20:40 96 27 H 79/51 95 06/23/16 20:30 128 H 25 H 96/63 97 06/23/16 20:20 114 H 11 L 102/63 98 06/23/16 20:10 92 53 H 102/63 98 06/23/16 20:00 102 H 11 L 84/56 98 06/23/16 19:50 98 13 97/57 98 06/23/16 19:40 122 H 35 H 97/57 97 06/23/16 19:30 100 28 H 78/57 98 06/23/16 19:20 117 H 10 L 87/52 99 06/23/16 19:10 112 H 11 L 87/52 98 06/23/16 19:09 99.3 F 97 06/23/16 19:00 99.3 F 127 H 39 H 101/73 98 06/23/16 18:50 119 H 25 H 94/60 97 06/23/16 16:51 92 20 101/59 100 06/23/16 16:27 100.4 F H 98 20 91/55 97 Intake and Output 06/24/16 06/24/16 06/24/16 06:59 14:59 22:59 Intake Total 450 130.0 Output Total 945 935 Balance -495 -805.0 Intake: IV 140 80 0.9% NaCl 140 80 Intake, IV Titration 70 50.0 Amount Piperacillin-Tazobactam 3 50 50.0 .375 gm In Dextrose/Water 1 50ml.bag @ 12.5 mls/hr IVPB Q8HR [facility] Rx#: [id number] Sodium Chloride 0.9% 500 20 ml @ 999 mls/hr IV .Q31M STA Rx#:[id number] Oral 240 Output: Urine 945 935 Other: Voiding Method Indwelling Catheter Indwelling Catheter Weight 52.8 kg In general patient is alert slightly confused in no apparent distress HEENT head normocephalic and atraumatic Neck is supple no JVD no goiter no lymphadenopathy no carotid bruit Chest exam reveals a few scattered crackles bilaterally no wheezing Cardiac exam reveals regular heart sounds no gallops no murmurs Abdomen is soft nontender no organomegaly Extremity exam reveals no edema no cyanosis or clubbing Neurological examination reveals no gross focal deficit Results CBC & Chem 7: 06/24/16 04:40 06/24/16 04:40 Labs: Abnormal Lab Results - Last 24 Hours (Table) 06/23/16 06/23/16 06/23/16 Range/Units 15:39 18:29 20:50 WBC (3.8-10.6) k/uL RBC (4.30-5.90) m/uL Hgb (13.0-17.5) gm/dL Hct (39.0-53.0) % MCHC (31.0-37.0) g/dL RDW (11.5-15.5) % Neutrophils # (Manual) (1.3-7.7) k/uL Lymphocytes # (Manual) (1.0-4.8) k/uL Monocytes # (Manual) (0-1.0) k/uL VBG pH 7.26 L (7.31-7.41) VBG HCO3 16 L (24-28) mmol/L Sodium (137-145) mmol/L Potassium (3.5-5.1) mmol/L Chloride (98-107) mmol/L Carbon Dioxide (22-30) mmol/L BUN (9-20) mg/dL Creatinine (0.66-1.25) mg/dL Glucose (74-99) mg/dL POC Glucose (mg/dL) 268 H (75-99) mg/dL Phosphorus (2.5-4.5) mg/dL Magnesium (1.6-2.3) mg/dL Urine Protein Trace H (Negative) Ur Leukocyte Esterase Large H (Negative) Urine WBC 17 H (0-5) /hpf Hyaline Casts 5 H (0-2) /lpf Urine Mucus Rare H (None) /hpf Urine Yeast (Budding) Occasional H (None) /hpf 06/24/16 06/24/16 06/24/16 Range/Units 04:40 04:40 07:38 WBC 164.2 H* (3.8-10.6) k/uL RBC 3.69 L (4.30-5.90) m/uL Hgb 9.8 L (13.0-17.5) gm/dL Hct 32.5 L (39.0-53.0) % MCHC 30.1 L (31.0-37.0) g/dL RDW 18.4 H (11.5-15.5) % Neutrophils # (Manual) 8.2 H (1.3-7.7) k/uL Lymphocytes # (Manual) 154.3 H (1.0-4.8) k/uL Monocytes # (Manual) 1.6 H (0-1.0) k/uL VBG pH (7.31-7.41) VBG HCO3 (24-28) mmol/L Sodium 149 H (137-145) mmol/L Potassium 5.6 H (3.5-5.1) mmol/L Chloride 117 H (98-107) mmol/L Carbon Dioxide 17 L (22-30) mmol/L BUN 55 H (9-20) mg/dL Creatinine 1.80 H (0.66-1.25) mg/dL Glucose 163 H (74-99) mg/dL POC Glucose (mg/dL) 140 H (75-99) mg/dL Phosphorus 5.3 H (2.5-4.5) mg/dL Magnesium 2.4 H (1.6-2.3) mg/dL Urine Protein (Negative) Ur Leukocyte Esterase (Negative) Urine WBC (0-5) /hpf Hyaline Casts (0-2) /lpf Urine Mucus (None) /hpf Urine Yeast (Budding) (None) /hpf Microbiology - Last 24 Hours (Table) 06/23/16 20:50 Urine Culture - Preliminary Urine,Catheterized Thrombosis Risk Factor Assmnt - Choose All That Apply Any of the Below Risk Factors Present?: Yes Each Factor Represents 1 point: Medical pt on bed rest Other Risk Factors: Yes Each Risk Factor Represents 2 Points: Age 61-74 years Other congenital or acquired thrombophilia - If yes, enter type in comment: No Thrombosis Risk Factor Assessment Total Risk Factor Score: 3 Thrombosis Risk Factor Assessment Level: Moderate Risk Assessment and Plan Plan: #1 worsening shortness of breath with evidence of congestive heart failure exacerbation and left sided pleural effusion #2 elevated d-dimer patient underwent VQ scan and was of intermediate probability of pulmonary embolism #3 hypertension on presentation requiring vasopressor use in ICU currently improved #4 chronic hypoxic respiratory failure requiring home oxygen use #5 underlying history of congestive heart failure #6 history of chronic lymphocytic leukemia #7 acute on chronic renal failure #8 congestive heart failure with cardiomyopathy with decreased ejection fraction to 20-30% #9 laryngeal cancer receiving radiation therapy #10 failed swallow evaluation on previous admission currently receiving thickened fluid #11 gastroesophageal reflux disease #12 previous history of alcohol use At this time medications and labs were reviewed patient has improved significantly he would be transferred out of intensive care unit Case was discussed in detail was Dr. Castillo Will follow closely Prognosis is guarded due to advanced multiple morbidities
[2016-06-24] MEDS: HYDROcodone/APAP 7.5-325MG 1 EACH TAB PO PRN ×2 (16:27→22:32)
[2016-06-24 16:59] LABS: Glucose,Whole Blood 108 mg/dL (75-99)
[2016-06-24] MEDS: ASCORBIC ACID 500 MG TAB PO SCH (17:51)
[2016-06-24] MEDS: LEVOFLOXACIN 500MG-D5W PMX 500 MG in DEXTROSE/WATER 1 100ML.BAG IVPB SCH (20:43)
[2016-06-24] MEDS: ATORVASTATIN 40 MG TAB PO SCH (20:43)
[2016-06-25] MEDS: PIPERACILLIN-TAZOBACTAM 3.375 GM in DEXTROSE/WATER 1 50ML.BAG IVPB SCH ×4 (00:24→23:16)
[2016-06-25 07:37] LABS: Anisocytosis Slight; Aty Lym Flag Marked; CH 25.9; CHCM 30.6; HCT 31.2 % (39.0-53.0); HDW 2.93; HGB 9.8 gm/dL (13.0-17.5); Hypochromasia Moderate; MCH 26.7 pg (25.0-35.0); MCHC 31.4 g/dL (31.0-37.0); MCV 85.3 fL (80.0-100.0); Mean Platelet Volume 7.5; RBC 3.67 m/uL (4.30-5.90); RDW 18.4 % (11.5-15.5); WBC (Perox) 141.7
[2016-06-25 07:38] LABS: Calcium 8.8 mg/dL (8.4-10.2); Phosphorous 3.5 mg/dL (2.5-4.5); Potassium 4.8 mmol/L (3.5-5.1)
[2016-06-25 08:02] LABS: WBC 146.2 k/uL (3.8-10.6)
[2016-06-25] MEDS: METOPROLOL SUCCINATE (ER) 25 MG TAB.ER.24H PO SCH (08:12)
[2016-06-25] MEDS: ASPIRIN 81 MG CHEW PO SCH (08:12)
[2016-06-25] MEDS: SERTRALINE 50 MG TAB PO SCH (08:12)
[2016-06-25] MEDS: LISINOPRIL 5 MG TAB PO SCH (08:12)
[2016-06-25] MEDS: ENOXAPARIN 40 MG/0.4 ML SYRINGE SQ SCH (08:13)
[2016-06-25] MEDS: FUROSEMIDE 40 MG TAB PO SCH (08:13)
[2016-06-25 08:49] LABS: Add Differential Manual Differential
[2016-06-25 08:51] LABS: Manual Review Performed; Nucleated Red Blood Cells 0 /100 WBC (0-0); Total Cells Counted 100
--- NOTE | 2016-06-25 10:27 | XR ---
EXAMINATION TYPE: XR chest 1V portable DATE OF EXAM: 06/25/2016 10:06 AM CLINICAL HISTORY: Difficulty breathing progress study. TECHNIQUE: Single AP portable upright view of the chest is obtained. COMPARISON: Chest x-ray from one day earlier FINDINGS: There is persistent left basilar atelectasis and/or infiltrate with small left pleural eff usion. Right lung remains predominantly clear. Chin obscures right lung apex on current study. Cardia c silhouette size is stable and enlarged with ectatic aorta. There is internally fixed healing or hea led fracture left proximal humerus. Lucent lesions within right proximal humerus are redemonstrated. Consider myeloma or ossific lytic metastatic disease. IMPRESSION: Overall stable findings, cardiomegaly with persistent left basilar infiltrate and/or at electasis and probable small left pleural effusion
[2016-06-25] MEDS: MAG HYDROX/AL HYDROX/SIMETH 30 ML, LIDOCAINE VISCOUS 30 ML, diphenhydrAMINE ELIXIR 75 M... PO SCH ×12 (12:17→23:17)
--- NOTE | 2016-06-25 12:29 | P.PN ---
Subjective Patient presented with shortness of breath and evidence of a CHF exacerbation. Transferred out of the ICU yesterday. Patient reports breathing is showing improvement. Currently on oral Lasix. Denies any chest pain. Denies any nausea vomiting. Had a bowel movement yesterday. Urine output adequate. Objective - Vital Signs Vital signs: Vital Signs Temp 97.9 F 06/25/16 07:00 Pulse 81 06/25/16 07:00 Resp 16 06/25/16 07:00 BP 105/67 06/25/16 07:00 Pulse Ox 100 06/25/16 07:00 Intake & Output 06/24/16 06/25/16 06/25/16 18:59 06:59 18:59 Intake Total 187.5 372.5 Output Total 1510 1525 Balance -1322.5 -1152.5 Intake: IV 100 20 0.9% NaCl 100 20 Intake, IV Titration 87.5 112.5 Amount Levofloxacin 500Mg-D5w 100 Pmx 500 mg In Dextrose/ Water 1 100ml.bag @ 100 mls/hr IVPB HS SANGEETA Rx#: [id number] Piperacillin-Tazobactam 3 87.5 12.5 .375 gm In Dextrose/Water 1 50ml.bag @ 12.5 mls/hr IVPB Q8HR SANGEETA Rx#: [id number] Oral 240 Output: Urine 1510 1525 Uretheral (Lopez) 1200 Other: Voiding Method Indwelling Catheter Indwelling Catheter Indwelling Catheter - Exam Head normocephalic Neck supple Lungs clear to auscultation bilaterally no wheezing or crackles Heart regular rate and rhythm S1-S2, no rub or gallop Abdomen is soft nontender nondistended positive bowel sounds no hepatosplenomegaly Extremities no edema Neuro alert and orientated to 3 - Labs CBC & Chem 7: 06/25/16 06:45 06/25/16 06:45 Labs: Abnormal Lab Results - Last 24 Hours (Table) 06/24/16 06/25/16 06/25/16 Range/Units 16:58 06:45 06:45 WBC 146.2 H* (3.8-10.6) k/uL RBC 3.67 L (4.30-5.90) m/uL Hgb 9.8 L (13.0-17.5) gm/dL Hct 31.2 L (39.0-53.0) % RDW 18.4 H (11.5-15.5) % Plt Count 148 L (150-450) k/uL Neutrophils # (Manual) 8.8 H (1.3-7.7) k/uL Lymphocytes # (Manual) 137.4 H (1.0-4.8) k/uL Chloride 108 H (98-107) mmol/L BUN 50 H (9-20) mg/dL Creatinine 1.57 H (0.66-1.25) mg/dL POC Glucose (mg/dL) 108 H (75-99) mg/dL Microbiology - Last 24 Hours (Table) 06/23/16 20:50 Urine Culture - Preliminary Urine,Catheterized Assessment and Plan Plan: #1 dyspnea secondary to CHF exacerbation. Also small left-sided pleural effusion. Awaiting repeat chest x-ray for today. Patient currently on oral Lasix 40 mg daily #2 elevated d-dimer patient underwent VQ scan and was of intermediate probability of pulmonary embolism evaluated by pulmonary service and they felt his symptoms are more CHF related. #3 hypertension on presentation requiring vasopressor use in ICU currently improved #4 chronic hypoxic respiratory failure requiring home oxygen use #5 underlying history of congestive heart failure #6 history of chronic lymphocytic leukemia #7 acute on chronic renal failure #8 congestive heart failure with cardiomyopathy with decreased ejection fraction to 20-30% #9 laryngeal cancer receiving radiation therapy #10 failed swallow evaluation on previous admission currently receiving thickened fluid #11 gastroesophageal reflux disease #12 previous history of alcohol use #13 medical debility PT OT consulted #14 chronic respiratory failure home O2 dependent DVT prophylaxis Lovenox 40 mg subcu daily
--- NOTE | 2016-06-25 15:17 | P.PN ---
Subjective Principal diagnosis: Congestive heart failure This 69-year-old male patient resides at the [facility]. The patient has multiple medical problems and comorbidities. 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. He did experience some difficulties in swallowing and painful swallow due to radiation therapy. He presented yesterday to be worse department because of difficulty in breathing, change in mental status and the patient was found to be disoriented and did not seem to be at his baseline. In the Department the patient was initially found to have a blood pressure 74/50. He was given a bolus of liter of fluid. This made him more short of breath and it was thought that he was going into pulmonary edema. At that point he was started on IV Lasix. Vasopressors were about to be initiated on this patient however this got placed on hold knowing that the patient's blood pressure improved. He was briefly placed on a BiPAP at a pressure of 10 over 5 cm of water 42 shortness of breath. This morning he is off the BiPAP. His chest x-ray shows kyphoscoliosis and some limited left basilar effusion and some microvascular congestion secondary to CHF. He is known to have heart failure along with coronary artery disease. He has multivessel coronary artery disease and he was not amenable for any any revascularization. His ejection fraction is around 25- 30%. He has also previous history of left-sided pleural effusion that was drained and the fluid characteristics was typical of CLL fluid. He is known to have underlying chronic of ascitic leukemia currently not receiving any treatment. Patient was reevaluated today on 06/25/2016, seems to be doing much better, breathing easier, chest x-ray shows cardiomegaly with persistent left basilar infiltrate or atelectasis and a small left pleural effusion. Patient remains hemodynamically stable. Continues to have significant leukocytosis with WBC count of 146,000, he has relatively normal tj BUN is down to 50 and creatinine is down to 1.57.ctrolytes, Objective - Vital Signs Vital signs: Vital Signs Temp 97.9 F 06/25/16 07:00 Pulse 81 06/25/16 07:00 Resp 16 06/25/16 07:00 BP 105/67 06/25/16 07:00 Pulse Ox 100 06/25/16 07:00 Intake & Output 0106/25/16 06/25/16 18:59 06:59 18:59 Intake Total 187.5 372.5 Output Total 1510 1525 Balance -1322.5 -1152.5 Weight 52.8 kg Intake: IV 100 20 0.9% NaCl 100 20 Intake, IV Titration 87.5 112.5 Amount Levofloxacin 500Mg-D5w 100 Pmx 500 mg In Dextrose/ Water 1 100ml.bag @ 100 mls/hr IVPB HS SANGEETA Rx#: [id number] Piperacillin-Tazobactam 3 87.5 12.5 .375 gm In Dextrose/Water 1 50ml.bag @ 12.5 mls/hr IVPB Q8HR SANGEETA Rx#: [id number] Oral 240 Output: Urine 1510 1525 Uretheral (Lopez) 1200 Other: Voiding Method Indwelling Catheter Indwelling Catheter Indwelling Catheter - Exam Head exam was generally normal. There was no scleral icterus or corneal arcus. Mucous membranes were moist.Neck was supple and without jugular venous distension, thyromegaly, or carotid bruits. Carotids were easily palpable bilaterally. There was no adenopathy. Lung examination shows thoraco- kyphoscoliosis. Breath sounds are diminished in left lung base. Few crackles are also appreciated lung bases bilaterally.Cardiac exam revealed the PMI to be normally situated and sized. The rhythm was regular and no extrasystoles were noted during several minutes of auscultation. The first and second heart sounds were normal and physiologic splitting of the second heart sound was noted. There were no murmurs, rubs, clicks, or gallops.Abdominal exam revealed normal bowel sounds. The abdomen was soft, non-tender, and without masses, organomegaly , or appreciable enlargement of the abdominal aorta.Examination of the extremities revealed easily palpable radial, femoral and pedal pulses. There was no cyanosis, clubbing or edema. - Labs CBC & Chem 7: 06/25/16 06:45 06/25/16 06:45 Labs: Abnormal Lab Results - Last 24 Hours (Table) 06/24/16 06/25/16 06/25/16 Range/Units 16:58 06:45 06:45 WBC 146.2 H* (3.8-10.6) k/uL RBC 3.67 L (4.30-5.90) m/uL Hgb 9.8 L (13.0-17.5) gm/dL Hct 31.2 L (39.0-53.0) % RDW 18.4 H (11.5-15.5) % Plt Count 148 L (150-450) k/uL Neutrophils # (Manual) 8.8 H (1.3-7.7) k/uL Lymphocytes # (Manual) 137.4 H (1.0-4.8) k/uL Chloride 108 H (98-107) mmol/L BUN 50 H (9-20) mg/dL Creatinine 1.57 H (0.66-1.25) mg/dL POC Glucose (mg/dL) 108 H (75-99) mg/dL Microbiology - Last 24 Hours (Table) 06/23/16 20:50 Urine Culture - Preliminary Urine,Catheterized Assessment and Plan Plan: 1 acute shortness of breath, likely secondary to CHF. There is also small left- sided pleural effusion. Pneumonia felt to be less likely. VQ scan is of a intermediate probability of the patient's critical presentation is most consistent with CHF 2 hypotension, recovered 3 hyperchloremic hypernatremia 4 acute on top of chronic renal injury, rule out secondary to cardiorenal factors. 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 18 thoracic kyphoscoliosis Recommendation: Continue empiric antibiotics, continue Lasix, consider discharge planning in the next 24-48 hours. And follow-up on outpatient basis. Time with Patient: Less than 30
--- NOTE | 2016-06-25 16:11 | CDI ---
In responding to this query, please exercise your independent professional judgment. The [facility] Coding Staff and Clinical Documentation Specialists appreciate your assistance in clarifying documentation, maintaining compliance with coding guidelines, accurately documenting patients condition and capturing severity of illness. The fact that a question is asked does not imply that any particular answer is desired or expected. Communication forms are a method of clarifying documentation and are not made part of the Legal Health Record. Thank you in advance for your clarification. Last Revision, August 2015 Susy Roy [address] [place] [address] Documentation Clarification Form Date: 06/25/2016 3:54:00 PM From: Ana Maria Gomez Admit Date: 06/23/2016 1:38:00 PM Patient Name: Mustapha Zhong Visit Number: [id number] Dr. Riky Brock and JT Jones CHF exacerbation is documented in the H&P and progress note. History/Risk Factors: CHF CLL Home O2 Laryngeal Cancer Acute on Chronic Renal Failure Clinical Indicators: Echocardiogram Results: from 05/17/2016 - ef 25-30% 'Left sided pleural effusion' per H&P Vitals on presentation: RR 20, O2 sats 97% on facemask Chest xray on 06/23: atelectasis or infiltrate Treatment: IV Lasix x1 Consults: Pulmonary In your professional opinion, can you please clarify the acuity and type of CHF if known? Acute CHF exacerbation Systolic Acute CHF exacerbation Diastolic Acute CHF exacerbation Systolic and Diastolic Unable to determine Other, please specify Please document in your progress notes and discharge summary in order to capture severity of illness and risk of mortality. Include clinical findings that support your diagnosis. FYI: Press F11 to launch patient chart. Place X here if this finding has no clinical significance, is not applicable or if you are not able to provide any additional documentation. SERAFIN
--- NOTE | 2016-06-25 16:19 | CDI ---
In responding to this query, please exercise your independent professional judgment. The [facility] Coding Staff and Clinical Documentation Specialists appreciate your assistance in clarifying documentation, maintaining compliance with coding guidelines, accurately documenting patients condition and capturing severity of illness. The fact that a question is asked does not imply that any particular answer is desired or expected. Communication forms are a method of clarifying documentation and are not made part of the Legal Health Record. Thank you in advance for your clarification. Last Revision, April 2015 Susy Roy [address] [address] Documentation Clarification Form Date: 06/25/2016 4:11:00 PM From: Ana Maria Gomez Admit Date: 06/23/2016 1:38:00 PM Patient Name: Mustapha Zhong Visit Number: [id number] Dr. Riky Brock or JT Jones Patient presents with a BUN/CR/GFR of: 38/1.74/39 History/Risk Factors: Acute on Chronic Renal Failure documented in H&P and progress note CHF IV Lasix administered ETOH use CLL Laryngeal Cancer receiving Radiation therapy Clinical Indicators: see admitting labs above Labs on 06/25: BUN 50, CR 1.57, GFR 44 Treatment: IV fluid bolus given in ED In order to capture the severity of condition, please clarify if the condition signifies: Acute on chronic renal failure and please stage Stage 1 GFR >90 Stage 2 GFR 60-89 Stage 3 GFR 30-59 Stage 4 GFR 15-29 Stage 5 GFR <15 ESRD Unable to determine Other, specify Please document in your progress notes and discharge summary in order to capture severity of illness and risk of mortality. Include clinical findings that support your diagnosis. FYI: Press F11 to launch patient chart. Place X here if this finding has no clinical significance, is not applicable or if you are not able to provide any additional documentation. SERAFIN
--- NOTE | 2016-06-25 16:35 | CDI ---
In responding to this query, please exercise your independent professional judgment. The [facility] Coding Staff and Clinical Documentation Specialists appreciate your assistance in clarifying documentation, maintaining compliance with coding guidelines, accurately documenting patients condition and capturing severity of illness. The fact that a question is asked does not imply that any particular answer is desired or expected. Communication forms are a method of clarifying documentation and are not made part of the Legal Health Record. Thank you in advance for your clarification. Last Revision, August 2015 Susy Roy [address] [facility] [place] [address] Documentation Clarification Form Date: 06/25/2016 4:22:00 PM From: Ana Maria Gomez Admit Date: 06/23/2016 1:38:00 PM Patient Name: Mustapha Zhong Visit Number: [id number] Dr. Riky Brock and JT Jones The patient presented with shortness of breath. Per ED note 'the patient developed acute shortness of breath again ...started on bipap'. History/Risk Factors: CHF exacerbation Acute on Chronic Renal Failure Elevated D-Dimer Chronic Hypoxic Respiratory Failure Clinical Indicators: Vital signs/Pulse oximetry: on presentation - RR 20, O2 sats 97% on mask > RR 20, sats 95% on 2L nc> RR 22, sats 93% on 3L> RR 20, sats 97% on bipap Lung/Breathing assessment: crackles in the bases per ED note ABG/CBG: pH 7.31 pCO2 36 pHCO3 17 Treatment: Breathing tx IV Lasix x1 IV steroids x1 IV antibiotics: Rocephin, Zithromax, Levaquin, Zosyn IV fluid bolus x1 O2: nasal cannula 2L>3L>bipap Admitted to ICU In your professional opinion, can you please clarify if these findings signify one or more of the following conditions? Acuity: Acute Chronic o Acute on Chronic Respiratory Status: o Respiratory failure with hypercapnia o Respiratory failure with hypoxia o Acute Respiratory Distress o Other Diagnosis, please specify o Unable to determine Please document in your progress notes and discharge summary in order to capture severity of illness and risk of mortality. Include clinical findings that support your diagnosis. FYI: Press F11 to launch patient chart. Place X here if this finding has no clinical significance, is not applicable or if you are not able to provide any additional documentation. MTDD
--- NOTE | 2016-06-25 16:45 | CDI ---
In responding to this query, please exercise your independent professional judgment. The [facility] Coding Staff and Clinical Documentation Specialists appreciate your assistance in clarifying documentation, maintaining compliance with coding guidelines, accurately documenting patients condition and capturing severity of illness. The fact that a question is asked does not imply that any particular answer is desired or expected. Communication forms are a method of clarifying documentation and are not made part of the Legal Health Record. Thank you in advance for your clarification. Last Revision, August 2015 Susy Roy [address] [facility] [place] [address] Documentation Clarification Form Date: 06/25/2016 4:36:00 PM From: Ana Maria Velabam Admit Date: 06/23/2016 1:38:00 PM Patient Name: Mustapha Zhong Visit Number: [id number] Dr. Riky Brock and JT Jones Per ED note 'at the nursing facility they noticed that he was a bit confused', ' felt he was disoriented'. Patient history/risk factors: CHF exacerbation Chronic Hypoxic respiratory failure Hypotensive on presentation CLL Laryngeal Cancer on Radiation therapy Clinical Indicators: ED reports that patient is 'barely awake, lethargic' BP 74/55 on presentation ABG's: pH 7.31, HCO3 17 Chest X Ray: limited because of position 'atelectasis or infiltrate' CT of brain: negative VQ scan: intermediate probability for PE Treatment: Updrafts IV Lasix x1 IV Steroids x1 IV Antibiotics O2 nasal cannula>bipap In your professional opinion, please clarify the etiology of the altered mental status, if known. Dementia (if know, specify Type and if with/without Behavioral Disturbance) Encephalopathy (specify Type and Underlying Medical Illness) Other condition (please specify) Unable to determine Please document in your progress notes and discharge summary in order to capture severity of illness and risk of mortality. Include clinical findings that support your diagnosis. FYI: Press F11 to launch patient chart. Place X here if this finding has no clinical significance, is not applicable or if you are not able to provide any additional documentation. MTDD
[2016-06-25] MEDS: ATORVASTATIN 40 MG TAB PO SCH (20:31)
[2016-06-25] MEDS: LEVOFLOXACIN 250 MG TAB PO SCH (20:31)
[2016-06-25] MEDS: HYDROcodone/APAP 7.5-325MG 1 EACH TAB PO PRN (20:31)
[2016-06-26] MEDS: SERTRALINE 50 MG TAB PO SCH ×2 (08:02→08:10)
[2016-06-26] MEDS: ASPIRIN 81 MG CHEW PO SCH (08:02)
[2016-06-26] MEDS: METOPROLOL SUCCINATE (ER) 25 MG TAB.ER.24H PO SCH ×2 (08:02→08:09)
[2016-06-26] MEDS: FUROSEMIDE 40 MG TAB PO SCH (08:02)
[2016-06-26] MEDS: LISINOPRIL 5 MG TAB PO SCH ×2 (08:02→08:09)
[2016-06-26] MEDS: MAG HYDROX/AL HYDROX/SIMETH 30 ML, LIDOCAINE VISCOUS 30 ML, diphenhydrAMINE ELIXIR 75 M... PO SCH ×12 (08:02→20:43)
[2016-06-26] MEDS: ENOXAPARIN 40 MG/0.4 ML SYRINGE SQ SCH (08:02)
[2016-06-26] MEDS: PIPERACILLIN-TAZOBACTAM 3.375 GM in DEXTROSE/WATER 1 50ML.BAG IVPB SCH ×3 (08:02→23:21)
[2016-06-26 08:04] LABS: Anisocytosis Slight; Aty Lym Flag Marked; CH 26.3; CHCM 31.3; HCT 33.8 % (39.0-53.0); HDW 2.86; HGB 10.3 gm/dL (13.0-17.5); Hypochromasia Slight; MCH 25.7 pg (25.0-35.0); MCHC 30.4 g/dL (31.0-37.0); MCV 84.6 fL (80.0-100.0); Mean Platelet Volume 7.8; RBC 3.99 m/uL (4.30-5.90); RDW 18.6 % (11.5-15.5)
[2016-06-26 08:19] LABS: Calcium 8.6 mg/dL (8.4-10.2); Magnesium 2.1 mg/dL (1.6-2.3); Phosphorous 3.6 mg/dL (2.5-4.5); Potassium 4.5 mmol/L (3.5-5.1)
[2016-06-26] MEDS: HYDROcodone/APAP 7.5-325MG 1 EACH TAB PO PRN ×2 (10:32→16:25)
[2016-06-26 10:34] LABS: Add Differential Manual Differential
--- NOTE | 2016-06-26 10:35 | XR ---
EXAMINATION TYPE: XR chest 1V portable DATE OF EXAM: 06/26/2016 9:01 AM COMPARISON: NONE INDICATION: Short of breath TECHNIQUE: Single frontal view of the chest is obtained. FINDINGS: The heart size is normal. The pulmonary vasculature is normal. Residual left basilar infiltrate is present. Small left pleural effusion may be present. Findings hav e improved from prior study. Note is made of multiple small lytic areas within the proximal right humeral metadiaphysis. IMPRESSION: 1. Minimal left pleural effusion and/or resolving left basilar infiltrate. 2. Small lytic areas within the proximal metadiaphysis right humerus.
[2016-06-26 10:36] LABS: Manual Review Performed; Nucleated Red Blood Cells 0 /100 WBC (0-0); Total Cells Counted 200
--- NOTE | 2016-06-26 11:37 | P.PN ---
Subjective This is a very pleasant 69-year-old male patient who resides at the [facility]. The patient has multiple medical problems and comorbidities. 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 He did experience some difficulties in swallowing and painful swallow due to radiation therapy. He presented because of difficulty in breathing, change in mental status and the patient was found to be disoriented and did not seem to be at his baseline. In the ER the patient was initially found to have a blood pressure 74/50. He was given a bolus of liter of fluid. This made him more short of breath and it was thought that he was going into pulmonary edema. At that point he was started on IV Lasix. Vasopressors were about to be initiated on this patient however this got placed on hold knowing that the patient's blood pressure improved. He was briefly placed on a BiPAP at a pressure of 10 over 5 cm of water 42 shortness of breath. This morning he is off the BiPAP. His chest x-ray shows kyphoscoliosis and some limited left basilar effusion and some microvascular congestion secondary to CHF. He is known to have heart failure along with coronary artery disease. He has multivessel coronary artery disease and he was not amenable for any any revascularization. His ejection fraction is around 25-30%. He has also previous history of left-sided pleural effusion that was drained and the fluid characteristics was typical of CLL fluid. He is known to have underlying chronic of ascitic leukemia currently not receiving any treatment. He is seen again today 06/26/2016 in follow-up. He is awake and alert in no acute distress. He states his breathing is better today as compared to yesterday. His chest x-ray does show improvement of the limited infiltrate in the left lower lobe. He states he is breathing easier today as compared to yesterday. He is afebrile. He is maintaining good O2 saturations in the high 90s on 2 L/m per nasal cannula. His main complaint is that of continued weakness. He is usually able to do his day-to-day ADLs without assistance. Objective - Vital Signs Vital signs: Vital Signs Temp 98 F 06/26/16 06:12 Pulse 84 06/26/16 06:12 Resp 16 06/26/16 06:12 BP 98/67 06/26/16 06:12 Pulse Ox 98 06/26/16 06:12 Intake & Output 06/25/16 06/26/16 06/26/16 18:59 06:59 18:59 Intake Total 260 360 30 Output Total 1000 700 Balance -740 -340 30 Weight 52.8 kg Intake: IV 160 0.9% NaCl 160 Intake, IV Titration 100 Amount Piperacillin-Tazobactam 3 100 .375 gm In Dextrose/Water 1 50ml.bag @ 12.5 mls/hr IVPB Q8HR [facility] Rx#: [id number] Oral 360 30 Output: Urine 1000 700 Uretheral (Lopez) 700 Other: Voiding Method Indwelling Catheter Indwelling Catheter Indwelling Catheter - Exam GENERAL EXAM: Alert, comfortable in no acute distress. HEAD: Normocephalic. EYES: Normal reaction of pupils, equal size. NOSE: Clear with pink turbinates. THROAT: No erythema or exudates. NECK: No masses, no significant JVD. CHEST: No chest wall deformity. LUNGS: Equal air entry with crackles in the left lung base. CVS: S1 and S2 normal with no audible murmurs, regular rhythm. ABDOMEN: No hepatosplenomegaly, normal bowel sounds, no guarding or rigidity. SPINE: Severe kyphoscoliosis. Extremities: There is trace peripheral edema. No clubbing, no cyanosis. Peripheral pulses are intact. - Labs CBC & Chem 7: 06/26/16 07:31 06/26/16 07:31 Labs: Abnormal Lab Results - Last 24 Hours (Table) 06/26/16 06/26/16 Range/Units 07:31 07:31 WBC 152.0 H* (3.8-10.6) k/uL RBC 3.99 L (4.30-5.90) m/uL Hgb 10.3 L (13.0-17.5) gm/dL Hct 33.8 L (39.0-53.0) % MCHC 30.4 L (31.0-37.0) g/dL RDW 18.6 H (11.5-15.5) % Lymphocytes # (Manual) 146.7 H (1.0-4.8) k/uL BUN 51 H (9-20) mg/dL Creatinine 1.63 H (0.66-1.25) mg/dL Assessment and Plan Plan: Impression: #1 Acute shortness of breath, likely secondary to CHF. There is also small left -sided pleural effusion. Pneumonia felt to be less likely. VQ scan is of a intermediate probability of the patient's critical presentation is most consistent with CHF #2 Hypotension, recovered #3 Hyperchloremic hypernatremia #4 Acute on top of chronic renal injury, rule out secondary to cardiorenal factors. 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 #18 Thoracic kyphoscoliosis. Plan: The patient was seen and evaluated by Dr. Foster. His chest x-ray and labs were reviewed. The patient is improved both clinically and radiographically. We'll have PT working with the patient in regards to his continued weakness. We 'll continue with his current medications including antibiotics in the form of Levaquin and Zosyn. Continue to diurese with Lasix 40 mg daily. We will increase his activity as tolerated. We'll continue to follow and make further recommendations based on his clinical status.
[2016-06-26] MEDS: CYANOCOBALAMIN 500 MCG TAB PO SCH (12:09)
[2016-06-26] MEDS: ASCORBIC ACID 500 MG TAB PO SCH (12:10)
[2016-06-26] MEDS: CALCIUM CARBONATE 500 MG CHEWABLE PO SCH (12:10)
[2016-06-26] MEDS: CHOLECALCIFEROL 1,000 UNIT TAB PO SCH (12:10)
--- NOTE | 2016-06-26 17:13 | P.PN ---
Subjective Principal diagnosis: Acute systolic congestive heart failure exacerbation Patient is stable he is alert and oriented, he reports some improvement in his shortness of breath, denies any chest pain. Objective - Vital Signs Vital signs: Vital Signs Temp 98 F 06/26/16 06:12 Pulse 84 06/26/16 06:12 Resp 16 06/26/16 06:12 BP 98/67 06/26/16 06:12 Pulse Ox 98 06/26/16 06:12 Intake & Output 06/25/16 06/26/16 06/26/16 18:59 06:59 18:59 Intake Total 260 360 160 Output Total 1000 700 Balance -740 -340 160 Weight 52.8 kg Intake: IV 160 80 0.9% NaCl 160 80 Intake, IV Titration 100 50 Amount Piperacillin-Tazobactam 3 100 50 .375 gm In Dextrose/Water 1 50ml.bag @ 12.5 mls/hr IVPB Q8HR [facility] Rx#: [id number] Oral 360 30 Output: Urine 1000 700 Uretheral (Lopez) 700 Other: Voiding Method Indwelling Catheter Indwelling Catheter Indwelling Catheter - Exam HEENT head normocephalic and atraumatic Neck is supple no JVD no goiter no lymphadenopathy Chest exam was scattered crackles bilaterally no wheezing Cardiac exam reveals regular heart sounds no murmurs Abdomen is soft nontender no organomegaly Extremity exam reveals no edema no cyanosis or clubbing - Labs CBC & Chem 7: 06/26/16 07:31 06/26/16 07:31 Labs: Abnormal Lab Results - Last 24 Hours (Table) 06/26/16 06/26/16 Range/Units 07:31 07:31 WBC 152.0 H* (3.8-10.6) k/uL RBC 3.99 L (4.30-5.90) m/uL Hgb 10.3 L (13.0-17.5) gm/dL Hct 33.8 L (39.0-53.0) % MCHC 30.4 L (31.0-37.0) g/dL RDW 18.6 H (11.5-15.5) % Lymphocytes # (Manual) 146.7 H (1.0-4.8) k/uL BUN 51 H (9-20) mg/dL Creatinine 1.63 H (0.66-1.25) mg/dL Microbiology - Last 24 Hours (Table) 06/23/16 20:50 Urine Culture - Final Urine,Catheterized Rosita sp,not albicans/galbr Assessment and Plan Plan: #1 worsening shortness of breath with evidence of congestive heart failure exacerbation and left sided pleural effusion #2 elevated d-dimer patient underwent VQ scan and was of intermediate probability of pulmonary embolism #3 hypertension on presentation requiring vasopressor use in ICU currently improved #4 chronic hypoxic respiratory failure requiring home oxygen use #5 underlying history of congestive heart failure #6 history of chronic lymphocytic leukemia #7 acute on chronic renal failure #8 congestive heart failure with cardiomyopathy with decreased ejection fraction to 20-30% #9 laryngeal cancer receiving radiation therapy #10 failed swallow evaluation on previous admission currently receiving thickened fluid #11 gastroesophageal reflux disease #12 previous history of alcohol use #13 possible pneumonia followed by pulmonary, maintained on Zosyn and Levaquin At this time medications and labs were reviewed patient has improved significantly. Will follow closely Prognosis is guarded due to advanced multiple morbidities
[2016-06-26] MEDS: LEVOFLOXACIN 250 MG TAB PO SCH (20:43)
[2016-06-26] MEDS: ATORVASTATIN 40 MG TAB PO SCH (20:43)
[2016-06-27 06:25] LABS: CH 34.2; CHCM 31.6; HDW 2.37; WBC (Perox) 7.92
[2016-06-27 07:55] LABS: Anisocytosis Slight; CH 25.8; CHCM 31.2; HCT 31.1 % (39.0-53.0); HDW 2.83; HGB 10.2 gm/dL (13.0-17.5); Hypochromasia Slight; MCH 27.2 pg (25.0-35.0); MCHC 32.7 g/dL (31.0-37.0); MCV 83.2 fL (80.0-100.0); Mean Platelet Volume 7.7; RBC 3.74 m/uL (4.30-5.90); RDW 17.6 % (11.5-15.5)
[2016-06-27] MEDS: MAG HYDROX/AL HYDROX/SIMETH 30 ML, LIDOCAINE VISCOUS 30 ML, diphenhydrAMINE ELIXIR 75 M... PO SCH ×12 (08:01→20:25)
[2016-06-27] MEDS: ASPIRIN 81 MG CHEW PO SCH (08:01)
[2016-06-27] MEDS: FUROSEMIDE 40 MG TAB PO SCH (08:01)
[2016-06-27] MEDS: SERTRALINE 50 MG TAB PO SCH (08:01)
[2016-06-27] MEDS: HYDROcodone/APAP 7.5-325MG 1 EACH TAB PO PRN ×2 (08:01→20:24)
[2016-06-27] MEDS: METOPROLOL SUCCINATE (ER) 25 MG TAB.ER.24H PO SCH (08:01)
[2016-06-27] MEDS: ENOXAPARIN 40 MG/0.4 ML SYRINGE SQ SCH (08:02)
[2016-06-27] MEDS: PIPERACILLIN-TAZOBACTAM 3.375 GM in DEXTROSE/WATER 1 50ML.BAG IVPB SCH ×3 (08:02→23:30)
[2016-06-27] MEDS: LISINOPRIL 5 MG TAB PO SCH (08:02)
[2016-06-27 08:10] LABS: WBC 166.2 k/uL (3.8-10.6)
[2016-06-27 08:13] LABS: Calcium 8.6 mg/dL (8.4-10.2); Potassium 4.1 mmol/L (3.5-5.1)
--- NOTE | 2016-06-27 08:19 | XR ---
EXAMINATION TYPE: XR chest 1V portable DATE OF EXAM: 06/27/2016 7:11 AM Comparison: 06/26/2016 Clinical History: 71 year-old male shortness of breath, pneumonia Findings: Heart remains upper limits of normal in size. There is redemonstrated patchy left basilar opacity wit h blunted costophrenic angle without significant change. Punched out lytic lucencies within the proxi mal right humerus are unchanged. Impression: 1. Stable trace left pleural effusion with adjacent infiltrate/atelectasis. 2. Lytic lucencies proximal right humerus redemonstrated.
--- NOTE | 2016-06-27 10:33 | P.PN ---
Subjective This is a very pleasant 69-year-old male patient who resides at the [facility]. The patient has multiple medical problems and comorbidities. 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 He did experience some difficulties in swallowing and painful swallow due to radiation therapy. He presented because of difficulty in breathing, change in mental status and the patient was found to be disoriented and did not seem to be at his baseline. In the ER the patient was initially found to have a blood pressure 74/50. He was given a bolus of liter of fluid. This made him more short of breath and it was thought that he was going into pulmonary edema. At that point he was started on IV Lasix. Vasopressors were about to be initiated on this patient however this got placed on hold knowing that the patient's blood pressure improved. He was briefly placed on a BiPAP at a pressure of 10 over 5 cm of water 42 shortness of breath. This morning he is off the BiPAP. His chest x-ray shows kyphoscoliosis and some limited left basilar effusion and some microvascular congestion secondary to CHF. He is known to have heart failure along with coronary artery disease. He has multivessel coronary artery disease and he was not amenable for any any revascularization. His ejection fraction is around 25-30%. He has also previous history of left-sided pleural effusion that was drained and the fluid characteristics was typical of CLL fluid. He is known to have underlying chronic lymphocytic leukemia. He states he is receiving radiation treatments by Dr. Peck at [facility]. He is seen again today 06/27/2016 in follow-up. He is awake and alert in no acute distress. He states his breathing is better today as compared to yesterday. His chest x-ray does show improvement of the limited infiltrate in the left lower lobe. He is afebrile. He is maintaining good O2 saturations in the high 90s on 2 L/m per nasal cannula. His daughters flew in from [place] last evening. He is quite happy and anxious to go back to the [place] today. Objective - Vital Signs Vital signs: Vital Signs Temp 98.2 F 06/27/16 07:00 Pulse 88 06/27/16 07:00 Resp 16 06/27/16 07:00 BP 112/62 06/27/16 07:00 Pulse Ox 98 06/27/16 07:00 Intake & Output 06/26/16 06/27/16 06/27/16 18:59 06:59 18:59 Intake Total 160 240 75 Output Total 1600 Balance 160 -1360 75 Weight 55.934 kg Intake: IV 80 240 0.9% NaCl @20 80 240 Intake, IV Titration 50 Amount Piperacillin-Tazobactam 3 50 .375 gm In Dextrose/Water 1 50ml.bag @ 12.5 mls/hr IVPB Q8HR [facility] Rx#: [id number] Oral 30 75 Output: Urine 1600 Other: Voiding Method Indwelling Catheter Indwelling Catheter Indwelling Catheter # Bowel Movements 2 - Exam GENERAL EXAM: Alert, comfortable in no acute distress. HEAD: Normocephalic. EYES: Normal reaction of pupils, equal size. NOSE: Clear with pink turbinates. THROAT: No erythema or exudates. NECK: No masses, no significant JVD. CHEST: No chest wall deformity. LUNGS: Equal air entry with crackles in the left lung base. CVS: S1 and S2 normal with no audible murmurs, regular rhythm. ABDOMEN: No hepatosplenomegaly, normal bowel sounds, no guarding or rigidity. SPINE: Severe kyphoscoliosis. Extremities: There is trace peripheral edema. No clubbing, no cyanosis. Peripheral pulses are intact. - Labs CBC & Chem 7: 06/27/16 07:21 06/27/16 07:25 Labs: Abnormal Lab Results - Last 24 Hours (Table) 06/26/16 06/27/16 06/27/16 Range/Units 07:31 06:10 06:10 WBC 152.0 H* (3.8-10.6) k/uL RBC 3.99 L 3.00 L (4.30-5.90) m/uL Hgb 10.3 L 10.3 L (13.0-17.5) gm/dL Hct 33.8 L 32.6 L (39.0-53.0) % MCV 108.9 H D (80.0-100.0) fL MCHC 30.4 L (31.0-37.0) g/dL RDW 18.6 H 16.5 H (11.5-15.5) % Lymphocytes # 0.1 L (1.0-4.8) k/uL Lymphocytes # (Manual) 146.7 H (1.0-4.8) k/uL Chloride 113 H (98-107) mmol/L Carbon Dioxide 15 L (22-30) mmol/L BUN 41 H (9-20) mg/dL Creatinine 1.40 H (0.66-1.25) mg/dL Glucose 186 H (74-99) mg/dL Calcium 6.6 L (8.4-10.2) mg/dL 06/27/16 06/27/16 Range/Units 07:21 07:25 WBC 166.2 H* (3.8-10.6) k/uL RBC 3.74 L (4.30-5.90) m/uL Hgb 10.2 L (13.0-17.5) gm/dL Hct 31.1 L (39.0-53.0) % MCV (80.0-100.0) fL MCHC (31.0-37.0) g/dL RDW 17.6 H (11.5-15.5) % Lymphocytes # (1.0-4.8) k/uL Lymphocytes # (Manual) (1.0-4.8) k/uL Chloride (98-107) mmol/L Carbon Dioxide (22-30) mmol/L BUN 46 H (9-20) mg/dL Creatinine 1.67 H (0.66-1.25) mg/dL Glucose 108 H (74-99) mg/dL Calcium (8.4-10.2) mg/dL Microbiology - Last 24 Hours (Table) 06/23/16 20:50 Urine Culture - Final Urine,Catheterized Rosita sp,not albicans/galbr Assessment and Plan Plan: Impression: #1 Acute exacerbation of chronic systolic congestive heart failure. There is also small left-sided pleural effusion. Pneumonia felt to be less likely. VQ scan is of intermediate probability of the patient's clinical presentation is most consistent with CHF. Chest x-ray on 06/27/2016 reveals near complete resolution. #2 Hypotension, recovered #3 Hyperchloremic hypernatremia #4 Acute on top of chronic renal injury, rule out secondary to cardiorenal factors. #5 CHF and an EF 23-30%, #6 Chronic left sided pleural effusion, history of #7 CLL, history of #8 Chronic hypoxic respiratory failure uses oxygen at home PRN, #9 Meningitits 8-10 years ago , history of #10 CVA , history of #11 CAD and insertion of previous coronary stent and he has tripple vessel disease that is not emenable for revascularization, #12 Anxiety and depression, #13 GERD, #14 Larygeal/vocal cord cancer and he is receiving radiation therapy with Dr. 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 #18 Thoracic kyphoscoliosis. Plan: The patient was seen and evaluated by Dr. Foster. His chest x-ray and labs were reviewed. The patient is improved both clinically and radiographically. We'll have PT working with the patient in regards to his continued weakness. We 'll continue with his current medications including antibiotics in the form of Levaquin and Zosyn. Continue to diurese with Lasix 40 mg daily. We will increase his activity as tolerated. He could be discharged home from the pulmonary standpoint. He follows in our office with Dr. Chacko. We'll schedule him an appointment within 1-2 weeks and could repeat the chest x-ray then.
[2016-06-27 11:27] LABS: Magnesium 2.1 mg/dL (1.6-2.3); Phosphorous 2.9 mg/dL (2.5-4.5)
[2016-06-27] MEDS: ONDANSETRON 4 MG/2 ML VIAL IVP PRN (13:10)
--- NOTE | 2016-06-27 18:44 | P.PN ---
Subjective Principal diagnosis: Acute systolic congestive heart failure exacerbation Patient is stable he is alert and oriented, he reports some improvement in his shortness of breath, denies any chest pain. Telemetry strips are showing episodes of severe tachycardia possible SVT Patient was hoping to go home to the [facility], to continue to have his radiation therapy at [facility], he states that his 2 daughters are here from [place] and they will help him with his mobility to go to the radiation on a daily basis. I have met with his 2 daughters today, they state that they are here only for one week, and it would be hard for them to arrange for radiation therapy transportion daily. Other options include possible transfer to [facility] to continue radiation therapy out of [facility], or transfer to [facility] at that point, patient would have to discontinue radiation therapy. Daughters will meet with Dr. Smith and discuss with him importance of radiation therapy and his overall picture, and decide on further plans for discharge. Objective - Vital Signs Vital signs: Vital Signs Temp 98.1 F 06/27/16 15:00 Pulse 79 06/27/16 15:00 Resp 16 06/27/16 15:00 BP 102/67 06/27/16 15:00 Pulse Ox 100 06/27/16 15:00 Intake & Output 06/26/16 06/27/16 06/27/16 18:59 06:59 18:59 Intake Total 160 240 305 Output Total 1600 Balance 160 -1360 305 Weight 55.934 kg Intake: IV 80 240 80 0.9% NaCl @20 80 240 80 Intake, IV Titration 50 50 Amount Piperacillin-Tazobactam 3 50 50 .375 gm In Dextrose/Water 1 50ml.bag @ 12.5 mls/hr IVPB Q8HR [facility] Rx#: [id number] Oral 30 175 Output: Urine 1600 Other: Voiding Method Indwelling Catheter Indwelling Catheter Indwelling Catheter # Bowel Movements 2 - Exam HEENT head normocephalic and atraumatic Neck is supple no JVD no goiter no lymphadenopathy Chest exam was scattered crackles bilaterally no wheezing Cardiac exam reveals regular heart sounds no murmurs Abdomen is soft nontender no organomegaly Extremity exam reveals no edema no cyanosis or clubbing - Labs CBC & Chem 7: 06/27/16 07:21 06/27/16 07:25 Labs: Abnormal Lab Results - Last 24 Hours (Table) 06/27/16 06/27/16 Range/Units 07:21 07:25 WBC 166.2 H* (3.8-10.6) k/uL RBC 3.74 L (4.30-5.90) m/uL Hgb 10.2 L (13.0-17.5) gm/dL Hct 31.1 L (39.0-53.0) % RDW 17.6 H (11.5-15.5) % BUN 46 H (9-20) mg/dL Creatinine 1.67 H (0.66-1.25) mg/dL Glucose 108 H (74-99) mg/dL Microbiology - Last 24 Hours (Table) 06/23/16 20:50 Urine Culture - Final Urine,Catheterized Rosita sp,not albicans/galbr Assessment and Plan Plan: #1 worsening shortness of breath with evidence of congestive heart failure exacerbation and left sided pleural effusion #2 elevated d-dimer patient underwent VQ scan and was of intermediate probability of pulmonary embolism #3 hypertension on presentation requiring vasopressor use in ICU currently improved #4 chronic hypoxic respiratory failure requiring home oxygen use #5 underlying history of congestive heart failure #6 history of chronic lymphocytic leukemia #7 acute on chronic renal failure #8 congestive heart failure with cardiomyopathy with decreased ejection fraction to 20-30% #9 laryngeal cancer receiving radiation therapy #10 failed swallow evaluation on previous admission currently receiving thickened fluid #11 gastroesophageal reflux disease #12 previous history of alcohol use #13 possible pneumonia followed by pulmonary, maintained on Zosyn and Levaquin At this time medications and labs were reviewed patient has improved significantly. Will follow closely Prognosis is guarded due to advanced multiple morbidities
[2016-06-27] MEDS: LEVOFLOXACIN 250 MG TAB PO SCH (20:25)
[2016-06-27] MEDS: ATORVASTATIN 40 MG TAB PO SCH (20:25)
--- NOTE | 2016-06-28 06:49 | P.CONS ---
History of Present Illness - Chief Complaint Medical debility - History of Present Illness I had the opportunity to see patient for inpatient rehab consultation with regard to medical debility. The patient is known to me from recent inpatient rehab stay. He was admitted to [facility] June 23 with shortness of breath and hypotension. Seen by pulmonary for same. Chest x-rays followed for left pleural effusion and infiltrate that is stable. Also noted right humerus lytic lesions. Pulmonary perfusion scan with intermediate possibility of PE. PT and OT ordered. Patient declined initial PT attempt for evaluation. Previous functional history: As elicited from patient. 71-year-old right- handed white male who is and resides at [place] currently. Meals and laundry provided any receives assistance for dressing bathing and wheelchair mobility. Currently following with Dr. Smith and Liv. Review of Systems Review of systems: ENT: Discomfort and throat related to disease process and RT. Eyes: Denies discharge or photophobia. Cardiac: Denies chest pain or palpitation. Pulmonary: Denies cough or shortness of breath. Gastrointestinal: Poor appetite. Genitourinary: Denies discharge or frequency. Musculoskeletal: Generalized wasting and weakness. Neurologic: Generalized weakness. Endocrine: Denies shakes or sweats. Oncology: Denies cancers. Dermatologic: Denies rash, itching, pruritus. ALLERGY/immunology: Denies sneezes, rashes. Past Medical History Past Medical History: Coronary Artery Disease (CAD), Cancer, CVA/TIA, GERD/ Reflux, Myocardial Infarction (LA) Additional Past Medical History / Comment(s): CHF and an EF 23-30%, chronic left sided pleural effusion, CLL, chronic hypoxic respiratory failure uses oxygen at home PRN, meningitits 8-10 years ago , CVA , CAD and insertion of previous coronary stent and he has tripple vessel disease that is not emenable for revascularization, anxiety and depression, GERD, larygeal/vocal cord cancer and he is receiving radiation therapy and 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 Last Myocardial Infarction Date:: 2013 History of Any Multi-Drug Resistant Organisms: None Reported Past Surgical History: Heart Catheterization With Stent Additional Past Surgical History / Comment(s): Cardiac catheterization insertion of coronary stents, colonoscopy, left shoulder surgery, thoracentesis of the left lung, laryngoscopy Past Anesthesia/Blood Transfusion Reactions: No Reported Reaction Date of Last Stent Placement:: 2013 Past Psychological History: Anxiety, Depression Additional Psychological History / Comment(s): Pt states he takes xanax for anxiety and that it works well for him. He states he smoked socially for about 3 yrs back in [id number]. He states he has abused alcohol and went into a rehab facility 5 yrs ago and quit drinking. He states lately he has been drinking beer with last time being yesterday after a disagreement with family member. He has attended AA in the past. He is retired [employer]. Smoking Status: Former smoker Past Alcohol Use History: Occasional Additional Past Alcohol Use History / Comment(s): please see psychological history section. Past Drug Use History: None Reported - Past Family History Father Family Medical History: CVA/TIA Additional Family Medical History / Comment(s): Father had several CVA's and eventually from one at the age of 84 yrs. Mother Family Medical History: Cancer, CVA/TIA Additional Family Medical History / Comment(s): Mother of colon cancer at the age of 78 yrs. Medications and Allergies Home Medications Medication Instructions Recorded Confirmed Type Acetaminophen Tab [Tylenol Tab] 650 mg PO Q6H PRN 05/16/16 06/23/16 History Ascorbic Acid [Vitamin C] 500 mg PO Q48H 05/16/16 06/23/16 History Aspirin EC [Ecotrin Low Dose] 81 mg PO DAILY 05/16/16 06/23/16 History Atorvastatin Calcium [Lipitor] 40 mg PO HS 05/16/16 06/23/16 History Calcium Carbonate [Tums] 500 mg PO DAILY PRN 05/16/16 06/23/16 History Cholecalciferol [Vitamin D3] 1,000 unit PO Q48H 05/16/16 06/23/16 History Cyanocobalamin [Vitamin B-12] 1,000 mcg PO Q48H 05/16/16 06/23/16 History HYDROcodone/APAP 7.5-325MG [Bradley 1 tab PO Q6H PRN 05/16/16 06/23/16 History 7.5-325] Metoprolol Succinate (ER) [Toprol 25 mg PO DAILY 05/16/16 06/23/16 History Xl] Sertraline [Zoloft] 50 mg PO DAILY 05/16/16 06/23/16 History ALPRAZolam [Xanax] 0.25 mg PO TID PRN 06/23/16 06/23/16 History Baclofen 10 mg PO BID 06/23/16 06/23/16 History Benzocaine/Menthol Lozeng [Cepacol 1 lozenge MUCOUS MEM Q1H PRN 06/23/16 History Lozenge] L. Rhamnosus GG/Inulin [Culturelle 1 tab PO Q48H 06/23/16 06/23/16 History Chewable Tablet] Levothyroxine Sodium [Synthroid] 25 mcg PO DAILY 06/23/16 06/23/16 History Lisinopril [Zestril] 2.5 mg PO DAILY 06/23/16 06/23/16 History Megestrol [Megace] 400 mg PO DAILY 06/23/16 06/23/16 History Melatonin 6 mg PO HS PRN 06/23/16 06/23/16 History Nystatin 100,000 Unit/ml Susp 500,000 units PO TID 06/23/16 06/23/16 History [Mycostatin Oral Susp] Ondansetron [Zofran] 4 mg PO Q8HR PRN 06/23/16 06/23/16 History Spironolactone [Aldactone] 25 mg PO DAILY 06/23/16 06/23/16 History guaiFENesin [Diabetic Tussin Ex] 200 mg PO Q4H PRN 06/23/16 06/23/16 History Allergies Allergy/AdvReac Type Severity Reaction Status Date / Time gluten AdvReac HEADACHE Verified 06/23/16 12:29 Physical Exam Vitals: Vital Signs Temp Pulse Resp BP Pulse Ox 06/27/16 23:00 97.7 F 56 L 16 106/57 97 06/27/16 15:00 98.1 F 79 16 102/67 100 06/27/16 07:00 98.2 F 88 16 112/62 98 Intake and Output 06/27/16 06/27/16 06/28/16 14:59 22:59 06:59 Intake Total 305 745 280 Output Total 1800 Balance 305 745 -1520 Intake: IV 80 80 160 0.9% NaCl @20 80 80 160 Intake, IV Titration 50 Amount Piperacillin-Tazobactam 3 50 .375 gm In Dextrose/Water 1 50ml.bag @ 12.5 mls/hr IVPB Q8HR [facility] Rx#: [id number] Oral 175 665 120 Output: Urine 1800 Other: Voiding Method Indwelling Catheter Indwelling Catheter # Bowel Movements 2 Weight 54.885 kg Patient Weight 06/28/16 06:59 Weight 54.885 kg Skin: Good color, texture, turgor. General: Thin, wasted but semi- comfortable appearance. Head: Normocephalic, atraumatic. Eyes: Symmetric. Pupils equal round. Ears: Symmetric. Hearing within normal limits. Mouth: Clear. Neck: Supple. Carotid without bruit. Cardiac: Regular rate and rhythm. Lungs: Clear anteriorly and posteriorly. Abdomen: Soft active nontender. Extremities: Normal tone. Thin limbs, wasted. Neurological: Mental status: Alert, cooperative, pleasant. Cranial nerves: Symmetric facial tone and trapezius. Motor: Actively elevates all limbs off of bed. Sensation: Intact throughout. DTRs: Symmetric and equal but absent throughout. Mobility: Sits and stands with minimal assistance. Results CBC & Chem 7: 06/27/16 07:21 06/27/16 07:25 Labs: Abnormal Lab Results - Last 24 Hours (Table) 06/27/16 06/27/16 Range/Units 07:21 07:25 WBC 166.2 H* (3.8-10.6) k/uL RBC 3.74 L (4.30-5.90) m/uL Hgb 10.2 L (13.0-17.5) gm/dL Hct 31.1 L (39.0-53.0) % RDW 17.6 H (11.5-15.5) % BUN 46 H (9-20) mg/dL Creatinine 1.67 H (0.66-1.25) mg/dL Glucose 108 H (74-99) mg/dL Chest x-ray: report reviewed (Chest x-rays demonstrated right pleural effusion and infiltrate which are stable. Also lytic lesions right humerus.) Assessment and Plan (1) CHF (congestive heart failure) Status: Acute Plan: Impression: 1. Medical debility. 2. Shortness of breath with CHF. 3. Elevated d-dimer. 4. Laryngeal cancer. Receiving radiation therapy. Comments and plan: PT and OT are ordered. Note patient had recent inpatient rehab stay and had difficulty fully participating with rehab due to medical issues and ongoing medical treatment. Patient currently resides at [place]. Would have [place] review patient's case for return to there and their possible functional needs for patient to be able to complete for readmission.
[2016-06-28] MEDS: ALPRAZolam 0.25 MG TAB PO PRN ×3 (07:11→21:25)
[2016-06-28] MEDS: LISINOPRIL 5 MG TAB PO SCH (07:11)
[2016-06-28] MEDS: FUROSEMIDE 40 MG TAB PO SCH (07:11)
[2016-06-28] MEDS: SERTRALINE 50 MG TAB PO SCH (07:12)
[2016-06-28] MEDS: ENOXAPARIN 40 MG/0.4 ML SYRINGE SQ SCH (07:12)
[2016-06-28] MEDS: MAG HYDROX/AL HYDROX/SIMETH 30 ML, LIDOCAINE VISCOUS 30 ML, diphenhydrAMINE ELIXIR 75 M... PO SCH ×12 (07:12→21:19)
[2016-06-28] MEDS: ASPIRIN 81 MG CHEW PO SCH (07:12)
[2016-06-28] MEDS: METOPROLOL SUCCINATE (ER) 25 MG TAB.ER.24H PO SCH (07:12)
[2016-06-28 08:27] LABS: Anisocytosis Slight; Aty Lym Flag Marked; CH 26.3; CHCM 31.2; HDW 2.88; HGB 10.2 gm/dL (13.0-17.5); Hypochromasia Slight; MCH 26.1 pg (25.0-35.0); MCHC 30.8 g/dL (31.0-37.0); MCV 84.7 fL (80.0-100.0); Mean Platelet Volume 8.2; RDW 18.3 % (11.5-15.5); WBC (Perox) 163.9
[2016-06-28] MEDS: PIPERACILLIN-TAZOBACTAM 3.375 GM in DEXTROSE/WATER 1 50ML.BAG IVPB SCH ×3 (08:28→23:19)
[2016-06-28 08:33] LABS: WBC 166.8 k/uL (3.8-10.6)
[2016-06-28 08:39] LABS: Calcium 8.4 mg/dL (8.4-10.2); Phosphorous 2.5 mg/dL (2.5-4.5); Potassium 3.8 mmol/L (3.5-5.1)
[2016-06-28 10:30] LABS: Add Differential Manual Differential
[2016-06-28 10:32] LABS: Manual Review Performed; Nucleated Red Blood Cells 0 /100 WBC (0-0); Total Cells Counted 200
[2016-06-28] MEDS: CALCIUM CARBONATE 500 MG CHEWABLE PO SCH (11:55)
[2016-06-28] MEDS: ASCORBIC ACID 500 MG TAB PO SCH (11:55)
[2016-06-28] MEDS: CYANOCOBALAMIN 500 MCG TAB PO SCH (11:55)
[2016-06-28] MEDS: CHOLECALCIFEROL 1,000 UNIT TAB PO SCH (11:55)
--- NOTE | 2016-06-28 13:25 | P.PN ---
Subjective Principal diagnosis: Congestive heart failure This is a very pleasant 69-year-old male patient who resides at the [facility]. The patient has multiple medical problems and comorbidities. 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. He did experience some difficulties in swallowing and painful swallow due to radiation therapy. He presented because of difficulty in breathing, change in mental status and the patient was found to be disoriented and did not seem to be at his baseline. In the ER the patient was initially found to have a blood pressure 74/50. He was given a bolus of liter of fluid. This made him more short of breath and it was thought that he was going into pulmonary edema. At that point he was started on IV Lasix. Vasopressors were about to be initiated on this patient however this got placed on hold knowing that the patient's blood pressure improved. He was briefly placed on a BiPAP at a pressure of 10 over 5 cm of water 42 shortness of breath. This morning he is off the BiPAP. His chest x-ray shows kyphoscoliosis and some limited left basilar effusion and some microvascular congestion secondary to CHF. He is known to have heart failure along with coronary artery disease. He has multivessel coronary artery disease and he was not amenable for any any revascularization. His ejection fraction is around 25-30%. He has also previous history of left-sided pleural effusion that was drained and the fluid characteristics was typical of CLL fluid. He is known to have underlying chronic lymphocytic leukemia. He states he is receiving radiation treatments by Dr. Peck at [facility]. He is seen again today 06/27/2016 in follow-up. He is awake and alert in no acute distress. He states his breathing is better today as compared to yesterday. His chest x-ray does show improvement of the limited infiltrate in the left lower lobe. He is afebrile. He is maintaining good O2 saturations in the high 90s on 2 L/m per nasal cannula. His daughters flew in from [place] last evening. He is quite happy and anxious to go back to the [facility] today. Patient was reevaluated today on 06/28/2016, he is in the process of being discharged tomorrow with today. Clinically the patient is doing well, and his daughters are at his bedside. Denies any shortness of breath, no cough, no wheezing. Chest x-ray from yesterday showed a trace of left pleural effusion and adjacent atelectasis. Lytic lucencies and lesions noted in the proximal right humerus. As described by the radiologist. Objective - Vital Signs Vital signs: Vital Signs Temp 97.6 F 06/28/16 07:00 Pulse 89 06/28/16 07:00 Resp 16 06/28/16 07:00 BP 119/65 06/28/16 07:00 Pulse Ox 97 06/28/16 09:18 Intake & Output 06/27/16 06/28/16 06/28/16 18:59 06:59 18:59 Intake Total 380 950 Output Total 1800 Balance 380 -850 Weight 54.885 kg Intake: IV 80 240 0.9% NaCl @20 80 240 Intake, IV Titration 50 Amount Piperacillin-Tazobactam 3 50 .375 gm In Dextrose/Water 1 50ml.bag @ 12.5 mls/hr IVPB Q8HR [facility] Rx#: [id number] Oral 250 710 Output: Urine 1800 Other: Voiding Method Indwelling Catheter Indwelling Catheter Indwelling Catheter # Bowel Movements 2 - Exam GENERAL EXAM: Alert, comfortable in no acute distress. HEAD: Normocephalic. EYES: Normal reaction of pupils, equal size. NOSE: Clear with pink turbinates. THROAT: No erythema or exudates. NECK: No masses, no significant JVD. CHEST: No chest wall deformity. LUNGS: Equal air entry with crackles in the left lung base. CVS: S1 and S2 normal with no audible murmurs, regular rhythm. ABDOMEN: No hepatosplenomegaly, normal bowel sounds, no guarding or rigidity. SPINE: Severe kyphoscoliosis. Extremities: There is trace peripheral edema. No clubbing, no cyanosis. Peripheral pulses are intact. - Labs CBC & Chem 7: 06/28/16 07:41 06/28/16 07:41 Labs: Abnormal Lab Results - Last 24 Hours (Table) 06/27/16 06/28/16 06/28/16 Range/Units 07:21 07:41 07:41 WBC 166.2 H* 166.8 H* (3.8-10.6) k/uL RBC 3.74 L 3.90 L (4.30-5.90) m/uL Hgb 10.2 L 10.2 L (13.0-17.5) gm/dL Hct 31.1 L 33.0 L (39.0-53.0) % MCHC 30.8 L (31.0-37.0) g/dL RDW 17.6 H 18.3 H (11.5-15.5) % Neutrophils # (Manual) 9.2 H (1.3-7.7) k/uL Lymphocytes # (Manual) 157.6 H (1.0-4.8) k/uL BUN 37 H (9-20) mg/dL Creatinine 1.50 H (0.66-1.25) mg/dL Assessment and Plan Plan: #1 Acute exacerbation of chronic systolic congestive heart failure. There is also small left-sided pleural effusion. Pneumonia felt to be less likely. VQ scan is of intermediate probability of the patient's clinical presentation is most consistent with CHF. Chest x-ray on 06/27/2016 reveals near complete resolution. #2 Hypotension, recovered #3 Hyperchloremic hypernatremia #4 Acute on top of chronic renal injury, rule out secondary to cardiorenal factors. #5 CHF and an EF 23-30%, #6 Chronic left sided pleural effusion, history of #7 CLL, history of #8 Chronic hypoxic respiratory failure uses oxygen at home PRN, #9 Meningitits 8-10 years ago , history of #10 CVA , history of #11 CAD and insertion of previous coronary stent and he has tripple vessel disease that is not emenable for revascularization, #12 Anxiety and depression, #13 GERD, #14 Larygeal/vocal cord cancer and he is receiving radiation therapy with Dr. Peck at 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 #18 Thoracic kyphoscoliosis. #19 lytic lesions noted on the right humerus, these will have to be addressed by his oncologist or radiation oncologist, and possibly evaluate further by bone scan. This could be done on outpatient basis. Recommendation: Agree with discharge planning, patient could follow-up with Dr. Castillo on outpatient basis, and should have follow-up with his oncologist and radiation oncologist. Time with Patient: Less than 30
--- NOTE | 2016-06-28 14:18 | P.PN ---
Subjective Patient presented with shortness of breath and evidence of a CHF exacerbation. Yesterday patient had an episode of severe tachycardia with possible SVT. We are now awaiting cardiology consult. Potassium and magnesium level and thyroid studies within normal limits. Patient is lying in bed comfortably with his 2 daughters at bedside. He has no new complaints. The plan is for patient to hold on radiation treatment and be transferred to [facility] for rehabilitation. Objective - Vital Signs Vital signs: Vital Signs Temp 97.6 F 06/28/16 07:00 Pulse 89 06/28/16 07:00 Resp 16 06/28/16 07:00 BP 119/65 06/28/16 07:00 Pulse Ox 97 06/28/16 09:18 Intake & Output 06/27/16 06/28/16 06/28/16 18:59 06:59 18:59 Intake Total 380 950 Output Total 1800 Balance 380 -850 Weight 54.885 kg Intake: IV 80 240 0.9% NaCl @20 80 240 Intake, IV Titration 50 Amount Piperacillin-Tazobactam 3 50 .375 gm In Dextrose/Water 1 50ml.bag @ 12.5 mls/hr IVPB Q8HR [facility] Rx#: [id number] Oral 250 710 Output: Urine 1800 Other: Voiding Method Indwelling Catheter Indwelling Catheter Indwelling Catheter # Voids 3 # Bowel Movements 2 - Exam Head normocephalic Neck supple Lungs clear to auscultation bilaterally no wheezing or crackles Heart regular rate and rhythm S1-S2, no rub or gallop Abdomen is soft nontender nondistended positive bowel sounds no hepatosplenomegaly Extremities no edema Neuro alert and orientated to 3 - Labs CBC & Chem 7: 06/28/16 07:41 06/28/16 07:41 Labs: Abnormal Lab Results - Last 24 Hours (Table) 06/27/16 06/28/16 06/28/16 Range/Units 07:21 07:41 07:41 WBC 166.2 H* 166.8 H* (3.8-10.6) k/uL RBC 3.74 L 3.90 L (4.30-5.90) m/uL Hgb 10.2 L 10.2 L (13.0-17.5) gm/dL Hct 31.1 L 33.0 L (39.0-53.0) % MCHC 30.8 L (31.0-37.0) g/dL RDW 17.6 H 18.3 H (11.5-15.5) % Neutrophils # (Manual) 9.2 H (1.3-7.7) k/uL Lymphocytes # (Manual) 157.6 H (1.0-4.8) k/uL BUN 37 H (9-20) mg/dL Creatinine 1.50 H (0.66-1.25) mg/dL Assessment and Plan Plan: #1 dyspnea secondary to acute systolic CHF exacerbation. Also small left-sided pleural effusion. Continue by mouth Lasix #2 elevated d-dimer patient underwent VQ scan and was of intermediate probability of pulmonary embolism evaluated by pulmonary service and they felt his symptoms are more CHF related. #3 hypertension on presentation requiring vasopressor use in ICU currently improved #4 acute on chronic hypoxic respiratory failure requiring home oxygen use #5 underlying history of congestive heart failure #6 history of chronic lymphocytic leukemia #7 acute on chronic renal failure, stage III #8 congestive heart failure with cardiomyopathy with decreased ejection fraction to 20-30% #9 laryngeal cancer receiving radiation therapy #10 failed swallow evaluation on previous admission currently receiving thickened fluid #11 gastroesophageal reflux disease #12 previous history of alcohol use #13 medical debility PT OT consulted #14 possible pneumonia followed by pulmonary continue the Zosyn and Levaquin #15 urine culture showing Rosita species not albicans. At this time we'll hold off on starting Diflucan due to its interaction with the Levaquin causing prolonged QT interval. Patient can start Diflucan after he has completed antibiotic treatment. #16 episode of SVT: Awaiting cardiology consult. Patient asymptomatic. Magnesium and potassium level within normal range. Thyroid studies normal. #17 lytic lucencies of the proximal right humerus is redemonstrated on chest x- ray. We'll have patient follow-up with oncology outpatient Anticipate discharge to [facility] tomorrow. Case discussed with oncology and they'll follow up with him outpatient in 3 weeks. DVT prophylaxis Lovenox 40 mg subcu daily
[2016-06-28 14:48] VITALS: BMI 18.9
[2016-06-28] MEDS: HYDROcodone/APAP 7.5-325MG 1 EACH TAB PO PRN (18:33)
--- NOTE | 2016-06-28 18:43 | P.CONS ---
History of Present Illness - Reason for Consult Consult date: 06/28/16 recommendations regarding treatment Requesting physician: Riky Brock - Chief Complaint hypotensive, AMS - History of Present Illness Mr. Zhong is a pleasant male pt of Dr. Smith diagnosed with CLL in 2007. He was on observation for many years with no need for treatment. He spent quite a few years in in [facility]. He returned to [place] in November of 2015. Pt was admitted to [facility] from 12/26-01/02/16 due to CHF exacerbation. He was found to have a left sided pleural effusion that was drained on 12/28/15, flow confirmed CLL. The pt stated that his oncologist in [facility] had recommended starting treatment with a "new pill" (most likely Ibrutinib ) apparently due to disease progression, which malignant effusion confirmed, pt was thus referred back to Dr. Smith for evaluation and recommendations. Treatment was oral ibrutinib was recommended, pt stated he wanted to think about it. He agreed to start ibrutinib in 03/25. He had marked difficulty in tolerating the prescribed dose due to drop in appetite, some nausea and weakness , he was not able to take the prescribed dose and did alter number of tablets he was taking without instruction or guidance from the doctor so, he was holding the medication when he starting having persistent voice hoarseness. He was found to have a mass on the left side, which was biopsied, positive for papillary RT was recommended, he has only completed 19 of 28 planned radiation sessions due to multiple hospitalizations, he was inpatient rehab at [facility] and did get some while he was there but due to inability of pt to physically keep up with the rehab he was discharged to [facility]. While there he was refusing to participate in any rehab. He has become so weak that he fell out of his wheel chair at the [facility] and injured his ribs , he was hypotensive and confused on admission and did spend time in the ICU. Today when seen he is in bed, he required assistance to sit up for posterior respiratory exam, he states he feels better and wants to finish radiation. Review of Systems All systems: negative Constitutional: Reports as per HPI Past Medical History Past Medical History: Coronary Artery Disease (CAD), Cancer, CVA/TIA, GERD/ Reflux, Myocardial Infarction ([place]) Additional Past Medical History / Comment(s): CHF and an EF 23-30%, chronic left sided pleural effusion, CLL, chronic hypoxic respiratory failure uses oxygen at home PRN, meningitits 8-10 years ago , CVA , CAD and insertion of previous coronary stent and he has tripple vessel disease that is not emenable for revascularization, anxiety and depression, GERD, larygeal/vocal cord cancer and he is receiving radiation therapy and 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 Last Myocardial Infarction Date:: 2013 History of Any Multi-Drug Resistant Organisms: None Reported Past Surgical History: Heart Catheterization With Stent Additional Past Surgical History / Comment(s): Cardiac catheterization insertion of coronary stents, colonoscopy, left shoulder surgery, thoracentesis of the left lung, laryngoscopy Past Anesthesia/Blood Transfusion Reactions: No Reported Reaction Date of Last Stent Placement:: 2013 Past Psychological History: Anxiety, Depression Additional Psychological History / Comment(s): Pt states he takes xanax for anxiety and that it works well for him. He states he smoked socially for about 3 yrs back in [id number]. He states he has abused alcohol and went into a rehab facility 5 yrs ago and quit drinking. He states lately he has been drinking beer with last time being yesterday after a disagreement with family member. He has attended AA in the past. He is retired [employer]. Smoking Status: Former smoker Past Alcohol Use History: Occasional Additional Past Alcohol Use History / Comment(s): please see psychological history section. Past Drug Use History: None Reported - Past Family History Father Family Medical History: CVA/TIA Additional Family Medical History / Comment(s): Father had several CVA's and eventually from one at the age of 84 yrs. Mother Family Medical History: Cancer, CVA/TIA Additional Family Medical History / Comment(s): Mother of colon cancer at the age of 78 yrs. Medications and Allergies Home Medications Medication Instructions Recorded Confirmed Type Acetaminophen Tab [Tylenol Tab] 650 mg PO Q6H PRN 05/16/16 06/23/16 History Ascorbic Acid [Vitamin C] 500 mg PO Q48H 05/16/16 06/23/16 History Aspirin EC [Ecotrin Low Dose] 81 mg PO DAILY 05/16/16 06/23/16 History Atorvastatin Calcium [Lipitor] 40 mg PO HS 05/16/16 06/23/16 History Calcium Carbonate [Tums] 500 mg PO DAILY PRN 05/16/16 06/23/16 History Cholecalciferol [Vitamin D3] 1,000 unit PO Q48H 05/16/16 06/23/16 History Cyanocobalamin [Vitamin B-12] 1,000 mcg PO Q48H 05/16/16 06/23/16 History HYDROcodone/APAP 7.5-325MG [[place] 1 tab PO Q6H PRN 05/16/16 06/23/16 History 7.5-325] Metoprolol Succinate (ER) [Toprol 25 mg PO DAILY 05/16/16 06/23/16 History Xl] Sertraline [Zoloft] 50 mg PO DAILY 05/16/16 06/23/16 History ALPRAZolam [Xanax] 0.25 mg PO TID PRN 06/23/16 06/23/16 History Baclofen 10 mg PO BID 06/23/16 06/23/16 History Benzocaine/Menthol Lozeng [Cepacol 1 lozenge MUCOUS MEM Q1H PRN 06/23/16 History Lozenge] L. Rhamnosus GG/Inulin [Culturelle 1 tab PO Q48H 06/23/16 06/23/16 History Chewable Tablet] Levothyroxine Sodium [Synthroid] 25 mcg PO DAILY 06/23/16 06/23/16 History Lisinopril [Zestril] 2.5 mg PO DAILY 06/23/16 06/23/16 History Megestrol [Megace] 400 mg PO DAILY 06/23/16 06/23/16 History Melatonin 6 mg PO HS PRN 06/23/16 06/23/16 History Nystatin 100,000 Unit/ml Susp 500,000 units PO TID 06/23/16 06/23/16 History [Mycostatin Oral Susp] Ondansetron [Zofran] 4 mg PO Q8HR PRN 06/23/16 06/23/16 History Spironolactone [Aldactone] 25 mg PO DAILY 06/23/16 06/23/16 History guaiFENesin [Diabetic Tussin Ex] 200 mg PO Q4H PRN 06/23/16 06/23/16 History Allergies Allergy/AdvReac Type Severity Reaction Status Date / Time gluten AdvReac HEADACHE Verified 06/23/16 12:29 Physical Exam Vitals: Vital Signs Temp Pulse Resp BP Pulse Ox 06/28/16 09:18 97 06/28/16 07:00 97.6 F 89 16 119/65 97 06/27/16 23:00 97.7 F 56 L 16 106/57 97 06/27/16 15:00 98.1 F 79 16 102/67 100 Intake and Output 06/27/16 06/28/16 06/28/16 22:59 06:59 14:59 Intake Total 745 280 Output Total 1800 Balance 745 -1520 Intake: IV 80 160 0.9% NaCl @20 80 160 Oral 665 120 Output: Urine 1800 Other: Voiding Method Indwelling Catheter Indwelling Catheter # Bowel Movements 2 Weight 54.885 kg - Constitutional General appearance: cooperative, no acute distress, thin - EENT Eyes: anicteric sclerae ENT: normal oropharynx - Neck Neck: no lymphadenopathy - Respiratory Respiratory: bilateral: diminished (weak effort) - Cardiovascular Heart sounds: normal: S1, S2 - Gastrointestinal General gastrointestinal: normal bowel sounds, scaphoid, soft - Integumentary Integumentary: pale - Neurologic Neurologic: CNII-XII intact - Musculoskeletal cachetic, muscle wasting Musculoskeletal: generalized weakness - Psychiatric Psychiatric: A&O x's 3, appropriate affect Results CBC & Chem 7: 06/28/16 07:41 06/28/16 07:41 Labs: Abnormal Lab Results - Last 24 Hours (Table) 06/27/16 06/28/16 06/28/16 Range/Units 07:21 07:41 07:41 WBC 166.2 H* 166.8 H* (3.8-10.6) k/uL RBC 3.74 L 3.90 L (4.30-5.90) m/uL Hgb 10.2 L 10.2 L (13.0-17.5) gm/dL Hct 31.1 L 33.0 L (39.0-53.0) % MCHC 30.8 L (31.0-37.0) g/dL RDW 17.6 H 18.3 H (11.5-15.5) % Neutrophils # (Manual) 9.2 H (1.3-7.7) k/uL Lymphocytes # (Manual) 157.6 H (1.0-4.8) k/uL BUN 37 H (9-20) mg/dL Creatinine 1.50 H (0.66-1.25) mg/dL Chest x-ray: report reviewed Assessment and Plan (1) Physical debility Narrative/Plan: Currently the pt is not able to manage self care independently, he is very weak and debilitated. Recommendation is for pt to participate in PT as offered at [facility] and then be reevaluated by Rad/Onc at [facility] for completion of radiation to larynx. Status: Chronic (2) Chronic lymphocytic leukemia Narrative/Plan: Pt WBC, though elevated is relatively stable at this time-over the last 5 months his WBC has ranged from 80K-250K. Pt is not in any physical condition to be placed on oral kinase inhibitor for CLL at this time. After rehabilitation and radiation pt can be evaluated by Dr. Smith for treatment recommendations. Status: Chronic (3) Larynx cancer Narrative/Plan: Pt will need some degree of rehabilitation before resuming any radiation, holding radiation for now was discussed with pt. He was very adamant that he wants to continue treatment so he was encouraged to do what he can with rehab and see how he is doing in a week or 2. All of this was discussed with his daughters yesterday in the office. Status: Chronic
[2016-06-28] MEDS: LEVOFLOXACIN 250 MG TAB PO SCH (21:19)
[2016-06-28] MEDS: ATORVASTATIN 40 MG TAB PO SCH (21:19)
[2016-06-28 21:20] VITALS: PULSE 78
[2016-06-29] MEDS: ALPRAZolam 0.25 MG TAB PO PRN (05:08)
[2016-06-29 07:39] LABS: Anisocytosis Slight; Aty Lym Flag Marked; CH 25.8; CHCM 30.8; HCT 30.9 % (39.0-53.0); HDW 2.87; HGB 9.8 gm/dL (13.0-17.5); Hypochromasia Moderate; MCH 26.6 pg (25.0-35.0); MCHC 31.7 g/dL (31.0-37.0); MCV 84.1 fL (80.0-100.0); Mean Platelet Volume 7.1; RBC 3.68 m/uL (4.30-5.90); RDW 17.7 % (11.5-15.5); WBC (Perox) 142.4
[2016-06-29 07:47] LABS: WBC 140.1 k/uL (3.8-10.6)
[2016-06-29 08:03] LABS: Calcium 8.4 mg/dL (8.4-10.2); Potassium 3.9 mmol/L (3.5-5.1); Total Bilirubin 0.8 mg/dL (0.2-1.3); Total Protein 5.3 g/dL (6.3-8.2)
[2016-06-29 08:12] VITALS: BP 101/59; RESP 20; TEMP 98.3
[2016-06-29 08:22] LABS: Add Differential Manual Differential
[2016-06-29 08:26] LABS: Nucleated Red Blood Cells 0 /100 WBC (0-0); Total Cells Counted 200
[2016-06-29] MEDS: PIPERACILLIN-TAZOBACTAM 3.375 GM in DEXTROSE/WATER 1 50ML.BAG IVPB SCH (08:40)
[2016-06-29] MEDS: ASPIRIN 81 MG CHEW PO SCH (08:42)
[2016-06-29] MEDS: FUROSEMIDE 40 MG TAB PO SCH (08:42)
[2016-06-29] MEDS: ENOXAPARIN 40 MG/0.4 ML SYRINGE SQ SCH (08:42)
[2016-06-29] MEDS: SERTRALINE 50 MG TAB PO SCH (08:43)
[2016-06-29] MEDS: LISINOPRIL 5 MG TAB PO SCH (08:43)
[2016-06-29] MEDS: METOPROLOL SUCCINATE (ER) 25 MG TAB.ER.24H PO SCH (08:43)
[2016-06-29] MEDS: MAG HYDROX/AL HYDROX/SIMETH 30 ML, LIDOCAINE VISCOUS 30 ML, diphenhydrAMINE ELIXIR 75 M... PO SCH ×4 (08:44)
[2016-06-29] MEDS: ONDANSETRON 4 MG/2 ML VIAL IVP PRN (10:31)
[2016-06-29] MEDS: HYDROcodone/APAP 7.5-325MG 1 EACH TAB PO PRN (10:31)
--- NOTE | 2016-06-29 14:19 | P.DS ---
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 RELATIONS DIRECTOR, ALREADY CONTACTED Do you want consulting provider notified?: Already Contacted 06/27/16 16:18 Consult Physician Routine Consulting Provider: Robert Mckeon Consult Reason/Comments: abnormal rhythm Do you want consulting provider notified?: Yes 06/27/16 16:19 Consult Physician Routine Consulting Provider: Leopoldo Little Consult Reason/Comments: possible rehab admiision Do you want consulting provider notified?: Yes 06/27/16 18:56 Consult Physician Routine Consulting Provider: Ted Smith Consult Reason/Comments: Continued radiation Do you want consulting provider notified?: Yes Primary care physician: Paulina Biggs Hospital Course: Discharge diagnoses #1 dyspnea secondary to acute systolic CHF exacerbation. Also small left-sided pleural effusion. Continue lasix 40 daily #2 elevated d-dimer patient underwent VQ scan and was of intermediate probability of pulmonary embolism evaluated by pulmonary service and they felt his symptoms are more CHF related. #3 hypotension on presentation requiring vasopressor use in ICU currently improved #4 acute on chronic hypoxic respiratory failure requiring home oxygen use #5 underlying history of congestive heart failure #6 history of chronic lymphocytic leukemia #7 acute on chronic renal failure, stage III #8 congestive heart failure with cardiomyopathy with decreased ejection fraction to 20-30% #9 laryngeal cancer receiving radiation therapy. Radiation treatment will currently be on hold while patient is at [facility] for rehabilitation. #10 failed swallow evaluation on previous admission currently receiving thickened fluid #11 gastroesophageal reflux disease #12 previous history of alcohol use #13 medical debility PT OT consulted #14 possible pneumonia followed by pulmonary continue Levaquin for 4 more days #15 urine culture showing Rosita species not albicans. At this time we'll hold off on starting Diflucan due to its interaction with the Levaquin causing prolonged QT interval. Patient can start Diflucan after he has completed antibiotic treatment. #16 episode of SVT: Evaluated by cardiology. They recommended to continue current medications. Patient asymptomatic. Magnesium and potassium level within normal range. Thyroid studies normal. #17 lytic lucencies of the proximal right humerus is redemonstrated on chest x- ray. We'll have patient follow-up with oncology outpatient in 3 weeks #18 hyperkalemia on admission possibly related to the Aldactone. Aldactone was discontinued # 19 paroxysmal atrial fibrillation: Evaluated by cardiology. Due to patient's comorbidities he is not a candidate for anticoagulation. They recommend that he continues with his current medications. #20 encephalopathy ruled out. Patient has been at his baseline mentation #21 diarrhea improved. Stool formed enough that lab would not have complete testing for C. diff Hospital course Patient is a 69-year-old male with multiple medical problems who currently resides at the [facility] and is followed by Dr. Peck at [facility] for radiation therapy for laryngeal cancer. Patient developed worsening shortness of breath and cough he was brought into [facility] emergency room he had evidence of hypotension was blood pressure of 74/50 he also had evidence of pulmonary edema he was started on IV Lasix IV pressors and was admitted to intensive care unit he was started on BiPAP pulmonary consultation with Dr. Castillo was initiated. Patient has a known history of leukemia, CLL with severe elevation in white blood count he also has a known history of laryngeal cancer currently receiving radiation therapy he has known history of coronary artery disease, congestive heart failure, previous left sided pleural effusion, hypothyroidism, hyperlipidemia, remote history of alcohol abuse. Patient was evaluated by pulmonary service. Eventually the seizure exacerbation did improve and she was switched over to oral Lasix. He will continue Lasix 40 mg daily. Patient will follow up with pulmonary service in the office. Patient was also seen by cardiology regards to an episode of SVT. He also had paroxysmal atrial fibrillation. This is a new onset for patient. Evaluated by cardiology. They recommended no anticoagulation due to his comorbidities. He is currently on metoprolol. His heart rate has been controlled. EKG had shown normal sinus rhythm with PACs for today. Patient is eager for discharge. He'll continue 4 more days of Levaquin to finish up treatment for his pneumonia. CHF exacerbation has resolved. His radiation treatment is on hold for his laryngeal cancer. At this time he will receive rehab at [facility] for a couple weeks and hopefully at that point to be discharged and then he can resume the radiation treatment. Will have patient follow-up with Dr. Smith outpatient setting in 3 weeks. He will also follow-up with cardiology in 1 week and pulmonary service in 1 week. Patient is medical stable discharge. Dr. Degroot we'll follow patient at [facility] Check CBC and CMP in 1 week Patient Condition at Discharge: Stable Plan - Discharge Summary New Discharge Prescriptions: ALPRAZolam [Xanax] 0.25 mg PO TID PRN #30 tablet PRN Reason: Anxiety HYDROcodone/APAP 7.5-325MG [[place] 7.5-325] 1 each PO Q6H PRN #60 tab PRN Reason: Pain Discharge Medication List Acetaminophen Tab [Tylenol] 650 mg PO Q6H PRN 05/16/16 [History] Ascorbic Acid [Vitamin C] 500 mg PO Q48H 05/16/16 [History] Aspirin EC [Ecotrin Low Dose] 81 mg PO DAILY 05/16/16 [History] Atorvastatin Calcium [Lipitor] 40 mg PO HS 05/16/16 [History] Calcium Carbonate [Tums] 500 mg PO DAILY PRN 05/16/16 [History] Cholecalciferol [Vitamin D3] 1,000 unit PO Q48H 05/16/16 [History] Cyanocobalamin [Vitamin B-12] 1,000 mcg PO Q48H 05/16/16 [History] Metoprolol Succinate (ER) [Toprol XL] 25 mg PO DAILY 05/16/16 [History] Sertraline [Zoloft] 50 mg PO DAILY 05/16/16 [History] Benzocaine/Menthol Lozeng [Cepacol lozenge] 1 lozenge MUCOUS MEM Q1H PRN [History] L. Rhamnosus GG/Inulin [[place] Chewable Tablet] 1 tab PO Q48H 06/23/16 [ History] Levothyroxine Sodium [Synthroid] 25 mcg PO DAILY 06/23/16 [History] Lisinopril [Zestril] 2.5 mg PO DAILY 06/23/16 [History] Megestrol [Megace] 400 mg PO DAILY 06/23/16 [History] Melatonin 6 mg PO HS PRN 06/23/16 [History] Nystatin 100,000 Unit/ml Susp [Mycostatin Oral Susp] 500,000 units PO TID [History] Ondansetron [Zofran] 4 mg PO Q8HR PRN 06/23/16 [History] guaiFENesin [Diabetic Tussin Ex] 200 mg PO Q4H PRN 06/23/16 [History] ALPRAZolam [Xanax] 0.25 mg PO TID PRN #30 tablet 06/29/16 [Rx] Furosemide [Lasix] 40 mg PO Q24HR tab 06/29/16 [Rx] HYDROcodone/APAP 7.5-325MG [[place] 7.5-325] 1 each PO Q6H PRN #60 tab 06/29/16 [ Rx] Levofloxacin [Levaquin] 250 mg PO HS #4 tab 06/29/16 [Rx] Follow up Appointment(s)/Referral(s): Ted Smith MD [STAFF PHYSICIAN] - 3 Weeks [facility], [NON-STAFF] - 1 Week Pernell Castillo MD [STAFF PHYSICIAN] - 1 Week Activity/Diet/Wound Care/Special Instructions: Diet: regular. Honey thick liquids Activity: as tolerated Patient to be discharged to [facility]. Dr. Degroot will follow him at [facility] Discharge Disposition: TRANSFER TO SNF/ECF
--- NOTE | 2016-06-29 14:38 | CONS ---
DATE OF CONSULTATION: Patient is seen in cardiology consultation for an opinion. Patient is known to have atherosclerotic heart disease with unstable angina, cardiomyopathy, ejection fraction 25 to 30% with congestive heart failure and also laryngeal cancer, being treated with radiation therapy. Patient is unable to eat solid foods, but able to eat soft foods and liquids. Patient admitted to the hospital with evidence of pulmonary edema, ( ) and better. The patient is in poor nutritional status. Patient has a history of paroxysmal atrial fibrillation, not a good candidate with multiple medical problems including CLL, for any long-term anticoagulation. Patient is skin and bones, very poor nutritional status. Has been on Ensure. Patient had low blood pressure which was resolved and the patient is doing reasonably well. Patient is on home oxygen and patient is also on BiPAP on admission, now is on nasal cannula. Patient's past history remarkable for cardiac catheterization and stent but the patient is not a candidate for any invasive testing, nothing needs to be done other than to follow with current medications. Patient may be able to go home on current medications ( ) and ( ) the patient is on supplements. Patient's medications at present time are: 1. Alprazolam 0.25 mg p.o. daily. 2. Ascorbic acid 500 mg. 3. Aspirin 81 mg p.o. daily. 4. Atorvastatin that can be stopped as this has very little ( ) any side effects or intolerance. 5. Calcium 1000 units daily. 6. B12 1000 mcg p.o. every 48 hours. 7. Patient is on enoxaparin 40 mg subcu q.12 hours. 8. Furosemide 40 mg p.o. daily. 9. Levofloxacin 250 mg p.o. daily. 10. Lisinopril 5 mg. 11. Metoprolol 25 mg p.o. daily. 12. Morphine for pain. 13. ( ). 14. Zofran. 15. Patient is on antibiotics. 16. Zoloft 50 mg p.o. daily. Patient's cardiac status is stable. Patient failure is reasonably well controlled at present time. Patient has CLL and laryngeal cancer. ASSESSMENT: 1. Atherosclerotic heart disease with congestive heart failure reasonably controlled at present time. 2. Cardiomyopathy, ejection fraction 25 to 30% without any overt failure. 3. Laryngeal cancer under treatment for radiation treatments. 4. History of chronic lymphocytic leukemia. 5. Paroxysmal atrial fibrillation, ( ) in sinus rhythm. Not a candidate for long-term anticoagulation with multiple medical problems. RECOMMENDATIONS: Concur with current therapy. Patient may be able to go to a intermediate from cardiac standpoint of view. Thank you again for this kind referral. 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
== END 2016-06-29 16:30 | DRG 291 ==
LOC: EC 10:23 → 6SEL 13:38 → 6ICU 16:51 → 5ONC 06-24 21:42
PROVIDERS: ADMIT Internal Medicine; ATTEND Internal Medicine
PROC: 5A09457 Assistance with Respiratory Ventilation, 24-96 Consecutive Hours, Continuous Positive Airway Pressure (ICD-10-PCS; principal; 2016-06-23)
DX: I13.0 Hypertensive heart and chronic kidney disease with heart failure and stage 1 through stage 4 chronic kidney disease, or unspecified chronic kidney disease (principal); I50.23 Acute on chronic systolic (congestive) heart failure; J96.21 Acute and chronic respiratory failure with hypoxia; J18.9 Pneumonia, unspecified organism; N17.9 Acute kidney failure, unspecified; E87.0 Hyperosmolality and hypernatremia; C91.10 Chronic lymphocytic leukemia of B-cell type not having achieved remission; I47.1 Supraventricular tachycardia; S22.39XA Fracture of one rib, unspecified side, initial encounter for closed fracture; B37.49 Other urogenital candidiasis; I95.9 Hypotension, unspecified; E87.8 Other disorders of electrolyte and fluid balance, not elsewhere classified; I42.9 Cardiomyopathy, unspecified; N18.3 Chronic kidney disease, stage 3 (moderate); R13.10 Dysphagia, unspecified; R07.9 Chest pain, unspecified; I48.0 Paroxysmal atrial fibrillation; C32.0 Malignant neoplasm of glottis; C32.9 Malignant neoplasm of larynx, unspecified; E03.9 Hypothyroidism, unspecified; E78.5 Hyperlipidemia, unspecified; F10.20 Alcohol dependence, uncomplicated; F32.9 Major depressive disorder, single episode, unspecified; F41.9 Anxiety disorder, unspecified; I25.2 Old myocardial infarction; K21.9 Gastro-esophageal reflux disease without esophagitis; E87.5 Hyperkalemia; R19.7 Diarrhea, unspecified; M41.84 Other forms of scoliosis, thoracic region; I25.10 Atherosclerotic heart disease of native coronary artery without angina pectoris; Z79.82 Long term (current) use of aspirin; Z79.899 Other long term (current) drug therapy; Z87.891 Personal history of nicotine dependence; Z95.5 Presence of coronary angioplasty implant and graft; W05.0XXA Fall from non-moving wheelchair, initial encounter; Y92.009 Unspecified place in unspecified non-institutional (private) residence as the place of occurrence of the external cause; Y84.2 Radiological procedure and radiotherapy as the cause of abnormal reaction of the patient, or of later complication, without mention of misadventure at the time of the procedure
CPT/HCPCS: 36415; 36600; 70450; 71010; 71020; 78582; 80048; 80053; 81001; 82550; 82553; 82803; 82805; 83605; 83735; 84100; 84439; 84443; 84484; 85025; 85027; 85379; 85610; 85730; 87040; 87086; 93005; 94644; 94660; 94760; 96365; 96367; 96375; 99214; 99291